=== PATIENT | female | born 1965 | race Two or more races ===

== ENCOUNTER 2023-03-13 11:23 | Emergency (ER) | payer OTHER, SELFPAY ==
[2023-03-13] VITALS (16 sets, daily range): BP systolic 152; BP diastolic 99; PULSE 78–117; RESP 12–26; O2SAT 95–98; BMI 52.9
--- NOTE | 2023-03-13 11:35 | ED.SOB1 ---
HPI - SOB/Dyspnea General Chief Complaint: Shortness of Breath/Dyspnea Stated Complaint: COUGH Time Seen by Provider: 03/13/23 11:35 Source: patient Mode of arrival: walk-in History of Present Illness HPI Narrative: Patient presents emergency department complaining of cough. Patient states she's had some congestion and sore throat and runny nose. She states her was sick with same pain that he had an antibiotic. She has been sick for 6 days. She complains of the congestion expanding to her chest.she denies any chest pain She denies any wheezing. She states it is hard to catch her breath. She has no previous history of lung disease. She denies any chills states she had a fever up to yesterday. Fever was on and off but she is not sure what her MAXIMUM TEMPERATURE was. She denies any nausea, vomiting, diarrhea, constipation, or abdominal pain. Denies any flank pain, hematuria, dysuria. Patient is vaccinated, and boosted against covid 19.Patient's spouse was not tested. Related Data Home Medications Medication Instructions Recorded Confirmed cholecalciferol (vitamin D3) 50 2,000 unit PO BID 03/13/23 03/13/23 mcg (2,000 unit) tablet (Vitamin D3) oxycodone 5 mg tablet 5 mg PO Q6H PRN pain 03/13/23 03/13/23 Previous Rx's Medication Instructions Recorded albuterol sulfate 90 mcg/actuation 2 inh inhalation Q4H PRN shortness 03/13/23 aerosol inhaler of breath or wheezing #8.5 grams methylprednisolone 4 mg tablets in 4 mg PO DAILY #21 ea 03/13/23 a dose pack (Medrol (Familia)) Allergies Allergy/AdvReac Type Severity Reaction Status Date / Time No Known Drug Allergies Allergy Verified 03/13/23 11:31 Review of Systems ROS Status of ROS 10 or more systems reviewed and unremarkable except as noted in history and below [facility] Medical History (Updated 03/13/23 @ 13:41 by Rebeca Mejia MD) Exam Narrative Exam Narrative: Nurses notes and vital signs reviewed and patient is not hypoxic. General: Nontoxic, Well-appearing and in no apparent distress. Skin: Warm, dry, no pallor noted. No Rash Head: Normocephalic, atraumatic. Neck: Supple, non-tender. Eye: Pupils are equal, round and EOMI. No scleral icterus. Ears, Nose, Mouth, and Throat: TM clear, no posterior oropharynx erythema or nasal mucosal hypertrophy, uvula is mid-line Oral mucosa is moist Cardiovascular: Regular Rate and Rhythm without murmur, gallop or rub. Respiratory: No accessory muscle use or respiratory distress. Lungs Scattered rhonchi Chest Wall: no tenderness Back: No midline thoracic or lumbar vertebral tenderness. No CVA tenderness Musculoskeletal: normal ROM, no calf or popliteal tenderness, no lower extremity edema/swelling GI: Obese,Abdomen is soft, non-distended. Normal bowel sounds. No masses appreciated. No tenderness to palpation. No rebound, guarding, or rigidity noted. Neurological: A&O x4. No cranial nerve dysfunction observed. No truncal ataxia. Moves all extremities. Sensation intact. Psychiatric: Cooperative and interactive. Normal mood and affect. Constitutional Vital Signs - 24 hr 03/13/23 11:31 Pulse Rate [Monitor] 99 H Respiratory Rate 20 Blood Pressure [Right Arm] 152/99 H Pulse Oximetry 96 Oxygen Delivery Method Room Air Course Vital Signs Vital signs: Vital Signs Pulse Rate 99 H 03/13/23 11:31 Respiratory Rate 20 03/13/23 11:31 Blood Pressure 152/99 H 03/13/23 11:31 Pulse Oximetry 96 03/13/23 11:31 Oxygen Delivery Method Room Air 03/13/23 11:31 Pulse Rate 78 03/13/23 13:50 Respiratory Rate 19 03/13/23 13:50 Blood Pressure 152/99 H 03/13/23 11:31 Pulse Oximetry 95 03/13/23 13:50 Oxygen Delivery Method Room Air 03/13/23 11:31 MDM - SOB/Dyspnea MDM Narrative Medical decision making narrative: Labs were done. An RESULTS were discussed with patient. Patient is nontoxic, non-hypoxic, she is not a candidate for Paxlovid. She will be started on steroids and an inhaler. She is given a prescription for the same. Advised covid precautions. At this time the patient is without objective evidence of an acute process requiring hospitalization or inpatient management. The patient has remained hemodynamically stable. No additional indication for emergent studies at this time. I answered all questions. Discussed discharge instructions including standard anticipatory guidance and what should prompt a return to the emergency department, including if they get worse are not getting better or develops any new or concerning symptoms. I've given them specific time frame in which to follow-up, and who to follow-up with. The patient demonstrates understanding. Patient is nontoxic and stable for discharge with outpatient follow-up. This note was created with the assistance of a speech recognition program. Although the intention is to generate documents that actually reflects the content of the visit, no guarantees can be provided that every mistake has been identified and corrected by editing. Differential Diagnosis Differential diagnosis: Likely acute exacerbation of chronic obstructive airways disease, congestive heart failure, community acquired pneumonia and asthma with exacerbation Lab Data Attestation: I reviewed the patient's lab results. Labs: Lab Results 03/13/23 03/13/23 Range/Units 12:15 12:35 WBC 7.4 (4.0-11.0) 10^3/uL RBC 4.48 (4.20-5.40) 10^6/uL Hgb 12.3 (12.0-16.0) g/dL Hct 38.8 (36.0-48.0) % MCV 86.6 (81.0-99.0) fL MCH 27.5 (26.7-34.0) pg MCHC 31.7 (29.9-35.2) g/dL RDW 16.0 H (11.0-15.0) % Plt Count 285 (150-450) 10^3/uL MPV 9.8 (9.5-13.5) fL Neut % (Auto) 59.5 (43.0-75.0) % Lymph % (Auto) 29.7 (20.5-60.0) % [place] % (Auto) 7.2 (1.7-12.0) % Eos % (Auto) 2.8 (0.9-7.0) % Baso % (Auto) 0.5 (0.2-2.0) % Neut # (Auto) 4.4 (1.4-6.5) 10^3/uL Lymph # (Auto) 2.2 (1.2-3.8) 10^3/uL [place] # (Auto) 0.5 (0.3-0.8) 10^3/uL Eos # (Auto) 0.2 (0.0-0.7) 10^3/uL Baso # (Auto) 0.0 (0.0-0.1) 10^3/uL Abs Immat Gran (auto) 0.02 (0.00-0.03) 10^3/uL Imm/Tot Granulo (auto) 0.3 (0.0-0.5) % Sodium 141 (136-145) mmol/L Potassium 3.4 L (3.5-5.1) mmol/L Chloride 105 (98-107) mmol/L Carbon Dioxide 29.0 (21.0-32.0) mmol/L Anion Gap 10.4 BUN 10.0 (7.0-18.0) mg/dL Creatinine 0.60 (0.55-1.02) mg/dL Est GFR ( Amer) >60 (>=60) Est GFR (Non-Af Amer) >60 (>=60) BUN/Creatinine Ratio 16.7 Glucose 144 H (74-106) mg/dL Lactate 2.1 H (0.4-2.0) mmol/L Calcium 9.0 (8.5-10.1) mg/dL SARS-CoV-2 (PCR) Positive A (NEGATIVE) Streptococcus Screen Negative ECG Data Attestation: I personally reviewed and interpreted this ECG as follows: Discharge Plan Discharge Chief Complaint: Shortness of Breath/Dyspnea Clinical Impression: Upper respiratory tract infection due to COVID-19 virus Patient Disposition: Home, Self-Care Time of Disposition Decision: 13:41 Condition: Good Mode of Transportation: Private Vehicle Prescriptions / Home Meds: New albuterol sulfate 90 mcg/actuation HFA aerosol inhaler 2 inh inhalation Q4H PRN (Reason: shortness of breath or wheezing) Qty: 8.5 0RF methylprednisolone [Medrol (Familia)] 4 mg tablets,dose pack 4 mg PO DAILY Qty: 21 0RF No Action cholecalciferol (vitamin D3) [Vitamin D3] 50 mcg (2,000 unit) tablet 2,000 unit PO BID oxycodone 5 mg tablet 5 mg PO Q6H PRN (Reason: pain) Instructions: COVID-19 (Coronavirus Disease 2019) (ED), How to Recover from COVID-19 at Home (ED) Additional Instructions: To car in w/c with instructions, mask, note for work. 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 Stand Alone Forms: Portal Instructions Referrals: Cruz Crain MD [Primary Care Provider] - 1 week Follow Up Appointments: 1 week Discharge Date/Time: 03/13/23 14:22
--- NOTE | 2023-03-13 11:54 | ECG_ITS ---
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
--- NOTE | 2023-03-13 12:12 | XR_ITS ---
The [address] [address] Patient Name: ALLYSSA ELENA MRN: [id number] date: 1965 Sex: F Assigned Patient Location: ER Current Patient Location: ER Accession/Order Number: [id number] Exam Date: 03/13/2023 12:23 Report Date: 03/13/2023 12:50 At the request of: STEVE ARELLANO Procedure: XR chest 2V EXAM: XR chest 2V HISTORY: cough COMPARISON: None. TECHNIQUE: Chest X-ray AP, 1 view FINDINGS: Support devices: None. Lungs/pleura: No consolidation, effusion, or pneumothorax. Heart and mediastinum: Normal contours. Bones: No acute abnormality identified. Impression: No radiographic evidence of acute cardiopulmonary process. Electronically authenticated by: LYSSA THAKKAR Date: 03/13/2023 12:50
[2023-03-13 12:40] LABS: Internal Control Within Normal Limits; Strep A Antigen Screen Negative
[2023-03-13 12:42] LABS: SARS-CoV-2 Ag Positive (NEGATIVE)
[2023-03-13 12:52] LABS: Basophils Percent Auto 0.5 % (0.2-2.0); Eosinophils Absolute Auto 0.2 10^3/uL (0.0-0.7); Eosinophils Percent Auto 2.8 % (0.9-7.0); Hematocrit 38.8 % (36.0-48.0); Hemoglobin 12.3 g/dL (12.0-16.0); Immature Granulocytes Abs Auto 0.02 10^3/uL (0.00-0.03); Immature Granulocytes Pct Auto 0.3 % (0.0-0.5); Lymphocytes Absolute Auto 2.2 10^3/uL (1.2-3.8); Lymphocytes Percent Auto 29.7 % (20.5-60.0); Mean Corpuscular HGB Conc 31.7 g/dL (29.9-35.2); Mean Corpuscular Hemoglobin 27.5 pg (26.7-34.0); Mean Corpuscular Volume 86.6 fL (81.0-99.0); Mean Platelet Volume 9.8 fL (9.5-13.5); Monocytes Absolute Auto 0.5 10^3/uL (0.3-0.8); Monocytes Percent Auto 7.2 % (1.7-12.0); Neutrophils Absolute Auto 4.4 10^3/uL (1.4-6.5); Neutrophils Percent Auto 59.5 % (43.0-75.0); Platelet Count 285 10^3/uL (150-450); Red Blood Count 4.48 10^6/uL (4.20-5.40); White Blood Count 7.4 10^3/uL (4.0-11.0)
[2023-03-13 12:58] LABS: Anion Gap 10.4; BUN Creatinine Ratio 16.7; Chloride 105 mmol/L (98-107); Estimated GFR (African America >60 (>=60); Estimated GFR (Non-African Ame >60 (>=60); Glucose 144 mg/dL (74-106); Potassium 3.4 mmol/L (3.5-5.1); Sodium 141 mmol/L (136-145)
[2023-03-13 13:06] LABS: Lactate/Lactic Acid 2.1 mmol/L (0.4-2.0)
[2023-03-13] MEDS: KETOROLAC TROMETHAMINE 30 MG/ML VIAL 15 MG IVP (13:12)
[2023-03-13] MEDS: 0.9 % SODIUM CHLORIDE 1,000 ML 999 ML IV (13:13)
--- NOTE | 2023-03-13 13:55 | PC.NURSE ---
verbalized feeling better
== END 2023-03-13 14:22 | disposition home or self-care (01) ==
PROVIDERS: Emergency Provider Emergency Medicine; PCP Family Medicine
DX: U07.1 COVID-19 (principal); J06.9 Acute upper respiratory infection, unspecified; E66.9 Obesity, unspecified
CPT/HCPCS: 36415; 71046; 80048; 83605; 85025; 87070; 87635; 87811; 87880; 93005; 96374; 99285; U0003

== ENCOUNTER 2023-06-08 12:46 | Outpatient (OUT) | payer OTHER, SELFPAY ==
--- NOTE | 2023-06-08 13:41 | CA_ITS ---
Patient: ALLYSSA ELENA Exam Date: 06/08/2023 : 1965 Gender:F Ordering : DR Cruz Crain . Admission #: [id number] Family : Order #: [id number] CLICK HERE TO VIEW EXAM ECHOCARDIOGRAM REPORT PROCEDURE: CA ECHO DOPPLER COMPLETE INDICATIONS: Shortness of breath, edema of both legs, recent Covid (03/2023) COMPARISON: None. DESCRIPTION: COMPLETE ECHOCARDIOGRAM Real-time transthoracic echocardiography with 2D, M-mode, spectral and color flow Doppler performed. QUALITY: Technical quality was fair. LEFT VENTRICLE: Normal chamber size. Mild concentric left ventricular hypertrophy. LV EF: Normal left ventricular ejection fraction, (55%). DIASTOLIC: Normal diastolic function. ATRIAL SEPTUM: LEFT ATRIUM: Normal chamber size. RIGHT ATRIUM: Normal chamber size. RIGHT VENTRICLE: Normal chamber size. Normal right ventricular systolic function. TRICUSPID VALVE: Normal mobility and thickness. No stenosis and no regurgitation. Unable to assess right sided pressures due to lack of measurable tricuspid regurgitation. MITRAL VALVE: Normal mobility and thickness. No evidence of mitral valve stenosis. There is no mitral annular calcification. Trivial mitral regurgitation. AORTIC VALVE: Normal trileaflet appearance. No visible sclerosis. Normal leaflet mobility. No evidence of aortic valve stenosis. No aortic regurgitation. AORTIC ROOT: Normal diameter and appearance. PULMONIC VALVE: Normal thickness and mobility. No stenosis. Trivial regurgitation. PERICARDIUM: No evidence of pericardial effusion. IVC: Not well visualized. PLEURA: CONCLUSION: 1. Mild concentric left ventricular hypertrophy with normal systolic function. LV EF is 55%. 2. Normal right ventricular size and systolic function. 3. No significant valvular dysfunction. 4. Unable to assess right sided pressures due to lack of measurable tricuspid regurgitation. Adult Echocardiography Procedure Report Left Ventricle LVEDD (3.7 - 5.6 cm): 4.34 cm LVESD (2.2 - 4.0 cm): 3.27 cm LVIVS thickness (0.6 - 1.2 cm): 1.31 cm LVPW thickness (0.5 - 1.0 cm): 1.30 cm e': 0.12 m/s E - e': 5.18 LVOT Max Gradient: 3.48 mm[Hg] LVOT Area (cm2): 0.93 m/s Peak Velocity (LVOT): 0.93 m/s LVOT Diameter 2.30 cm Left Atrium LA Volume Index (2D A2C): 27.52 ml/m2 Left Atrium Systolic Dimension: 3.75 cm Mitral Valve MV E to A Ratio: 0.86 Mitral Valve A-Wave Peak Velocity: 0.71 m/s Mitral Valve E-Wave Peak Velocity: 0.61 m/s Right Ventricle Aorta AO Root Diam: 3.48 cm Aortic Valve AoV Area (Peak Malik): 3.31 cm2, 3.31 cm2 Peak Velocity(Antegrade Flow): 1.16 m/s Peak Gradient(Antegrade Flow): 5.42 mm[Hg] Tricuspid Valve Peak Velocity (Regurgitant Flow): 2.24 m/s Pulmonic Valve Mean Gradient: 2.94 mm[Hg], 3.14 mm[Hg], 2.55 mm[Hg] Mean Velocity: 0.80 m/s, 0.82 m/s, 0.74 m/s Peak Velocity: 1.16 m/s Peak Gradient: 5.09 mm[Hg], 5.85 mm[Hg], 5.09 mm[Hg] Right Atrium Right Atrium Systolic Pressure: 40.76 ml, 40.76 ml Dictated by: Roberto Kwok M.D. on 06/09/2023 at 09:20 Approved by: Roberto Kwok M.D. on 06/09/2023 at 09:28
== END 2023-06-08 12:47 | disposition home or self-care (01) ==
LOC: CARD 12:47
PROVIDERS: PCP Family Medicine; Visit Provider Family Medicine
DX: R06.02 Shortness of breath (principal); U07.1 COVID-19
CPT/HCPCS: 93306

== ENCOUNTER 2024-01-20 08:00 | Outpatient (OUT) | payer OTHER, SELFPAY ==
--- NOTE | 2024-01-20 08:01 | VEIN_ITS ---
Patient Name: ALLYSSA ELENA MR#: [id number] : 1965 Exam Date: 01/20/2024 Ordering Doctor: DR LAVELL RIVER . RADIOLOGY REPORT PROCEDURE: VC EXT VENOUS REFLUX CASSIA LMTD COMPARISON: None. INDICATIONS: R60.0 Localized edema TECHNIQUE: Duplex imaging of the lower extremity to assess the deep and superficial venous system for the presence of deep or superficial venous incompetence and to document the location and severity of disease. The study includes evaluation of the great saphenous vein (GSV), anterior accessory saphenous vein (AASV) and small saphenous vein (SSV). Patient scanned in reverse Trendelenburg and standing. FINDINGS: RIGHT LOWER EXTREMITY: Saphenofemoral Junction Reflux: Yes mm sec GSV: Diam (mm) Reflux/ Time (sec) Proximal Thigh N/A Mid Thigh N/A Distal Thigh N/A Prox Calf N/A Mid Calf N/A Saphenopopliteal Junction Reflux: 5.6mm Yes 3.9 SSV: Proximal Calf 5.8 Yes 3.8 Mid Calf 4.4 Yes 2.3 AASV: Not present Proximal Thigh Mid Thigh Distal Thigh Thrombi: No acute or chronic thrombus visualized Compressibility: Normal Flow: Mild reflux visualized in Pop V. Preforator: Mid/med calf 3.8mm with 1.0s reflux. Mid/med thigh 2.2mm with 0s reflux. Tech Note: Previous stripping of GSV. Incompetent SSV. Patent varicose vein ant/med 2.3mm with 0.3s reflux. LEFT LOWER EXTREMITY: Saphenofemoral Junction Reflux: Yes 11.4 mm 4.6 sec GSV: Diam (mm) Reflux/Time (sec) Proximal Thigh N/A Mid Thigh N/A Distal Thigh N/A Prox Calf N/A Mid Calf Saphenopopliteal Junction Relux: 2.9 mm No SSV: Proximal Calf 2.2 No Mid Calf 2.5 No AASV: Not present Proximal Thigh Mid Thigh Distal Thigh Thrombi: No acute or chronic thrombus visualized Compressibility: Normal Flow: Normal Twisting Machine Operator: Dist/med calf 4.3mm with 0s reflux. Mid/med calf 4.9mm with 1.6s reflux. Tech Note: Previous stripping of GSV. Extensive varicose vein in length and diameter extending from SFJ to proximal calf. The varicosity measures largest at dist/med thigh and is 6.3 mm with 2.1s reflux. Patent varicose vein at medial knee 6.0mm with 2.1s reflux. Patent varicose vein prox/med calf 3.7mm with 3.5s reflux. CONCLUSION: 1. Abnormally dilated and incompetent right small saphenous vein. 2. Abnormally dilated and incompetent distal lower extremity chief crew scheduler veins bilaterally. 3. 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 Dictated by: Lio Levin M.D. on 01/20/2024 at 13:27 Approved by: Lio Levin M.D. on 01/20/2024 at 13:30
--- NOTE | 2024-01-20 08:01 | VEIN_ITS ---
Patient Name: ALLYSSA ELENA MR#: [id number] : 1965 Exam Date: 01/20/2024 Ordering Doctor: DR LAVELL RIVER . RADIOLOGY REPORT PROCEDURE: VC FACILITY EST COMPREHENSIVE VEIN CENTER - OFFICE VISIT INITIAL COMPARISON: None. PROGRESS NOTES: [age] year old female who presents with a 30 year history of dilated bulging veins, discolored veins, leg pain, swelling, muscle cramping. The patient's left leg symptoms are worse than the right. There has been a progression of symptoms over time. This increases with prolonged leg dependency. The patient describes an improvement with rest, elevation, exercise, support stockings, and medication. The patient denies any signs and symptoms to suggest arterial ischemia. The patient describes a family history : Noncontributory. The patient has drinking and smoking history of : None. Patient has a past medical history significant for obesity, osteoarthritis, edema. The patient denies a history of deep venous thrombus or pulmonary embolus. See separate history and physical for medication list. Several prior treatments for varicose or spider veins. Current use of compression stockings. After review of nurse notes, history and physical exam I discussed at length the pathophysiology of venous hypertension and possible treatments, therapies and strategies available. We discussed at length the importance of elevating the lower extremities above the level of the heart, increased physical activity and compression stocking use. Ultrasound venous reflux study performed today was discussed at length with the patient. The report demonstrates abnormally dilated and incompetent right small saphenous vein; bilateral dilated incompetent street railway line installer veins, and multiple incompetent branch saphenous varicosities bilaterally.. PHYSICAL EXAM: The right leg demonstrates multiple varicosities, numerous spider veins, no ulceration, mild edema, mild skin discoloration. The left leg demonstrates multiple varicosities, numerous spider veins, no ulceration, mild edema, mild skin discoloration. Both thighs, legs and feet were symmetrically warm to the touch. Good posterior tibial and dorsalis pedis pulses were present bilaterally. VEIN/VC Facility EST Comprehensive IMPRESSION: 1. Bilateral vein stripping of the right GSV and left GSV. 2. Bilateral lower extremity venous insufficiency 3. Bilateral lower extremity varicose veins 4. Mild bilateral lower extremity subcutaneous edema 5. No flow significant arterial disease 6. CEAP: C3, AP, AP, MA PLAN: 1. Continued use of compression stockings 2. Elevated legs and increased physical activity symptomatic relief 3. Endovenous laser ablation of right small saphenous vein. 4. Microfoam chemical ablation of numerous bilateral branch saphenous varicosities is needed (if insurance will approve). Nurse notes, history and physical were reviewed and confirmed, see attached forms. The nurse was present throughout the physical exam and consultation Dictated by: Lio Levin M.D. on 01/20/2024 at 13:30 Approved by: Lio Levin M.D. on 01/20/2024 at 13:36
== END 2024-01-20 08:01 | disposition home or self-care (01) ==
LOC: VC 08:00
PROVIDERS: PCP Family Medicine; Visit Provider Family Medicine
DX: R60.0 Localized edema (principal)
CPT/HCPCS: 93970; G0463

== ENCOUNTER 2024-01-24 12:30 | Outpatient (OUT) | payer OTHER, SELFPAY | END 2024-01-24 12:31 | disposition home or self-care (01) | LOC: PST 14:52 | PROVIDERS: PCP Family Medicine; Visit Provider Surgery | DX: Z01.818 Encounter for other preprocedural examination (principal) ==

== ENCOUNTER 2024-01-31 07:45 | Day surgery (SDC) | payer OTHER, SELFPAY ==
[2024-01-31 08:00] VITALS: BP 149/45; PULSE 103; TEMP 36.8; O2SAT 94; BMI 55.9
[2024-01-31] MEDS: LACTATED RINGER'S SOLUTION 1,000 ML 50 ML IV (08:35)
--- NOTE | 2024-01-31 08:54 | PM.GSPRC ---
Date of procedure: 01/31/24 Indications for Procedure: screening colonoscopy Pre-op diagnosis: screening colonoscopy Procedure: Previous colonoscopy: never procedure: screening colonoscopy The patient was given IV conscious sedation.? The patient's SPO2 remained above 90% throughout the procedure. The colonoscope was inserted per rectum and advanced under direct vision to the cecum without difficulty.? The prep was fair.? Findings: Terminal ileum os: normal Cecum/Ascending colon: normal Transverse colon: normal Descending/Sigmoid colon: normal Rectum/Anus: examined in normal and retroflexed positions and was normal Withdrawal Time was (minutes): 8 The colon was decompressed and the scope was removed.? The patient tolerated the procedure well. Recommendations/Plan: 1.? Lifestyle and dietary modifications as discussed 2.? F/U 10 years for repeat c-scope 3.? Discussed with the family Findings: normal colonoscopy Surgeon: Femi Love Procedure Summary: screening colonoscopy Estimated blood loss (mL): 0 Complications: No Pathology: none sent Condition: stable Disposition: PACU
[2024-01-31 09:21] VITALS: BP 121/81; PULSE 96; TEMP 36.5; O2SAT 99
[2024-01-31 09:36] VITALS: BP 156/77; PULSE 89; O2SAT 97
[2024-01-31 09:51] VITALS: BP 152/97; PULSE 96; O2SAT 98
== END 2024-01-31 09:56 | disposition home or self-care (01) ==
PROVIDERS: PCP Family Medicine; Visit Provider Surgery
PROC: (CPT 00812; principal; 2024-01-31 09:10)
DX: Z12.11 Encounter for screening for malignant neoplasm of colon (principal); E66.01 Morbid (severe) obesity due to excess calories; Z68.43 Body mass index [BMI] 50.0-59.9, adult; Z96.653 Presence of artificial knee joint, bilateral
CPT/HCPCS: 00812; 45378; J2704

== ENCOUNTER 2024-03-02 07:49 | Outpatient (OUT) | payer OTHER, SELFPAY ==
--- OUTSIDE RECORDS SUMMARY | 2024-03-02 07:51 | XMS_ITS | CCD ---
Author Organization [facility] Care Team Providers Care Office Analyst Name Role Phone Solomon Walters Unavailable Unavailable PocSolomon carroll Unavailable Unavailable PocSolomon carroll Unavailable Unavailable KAMALA [id number] UNKNOWN Unavailable Unavailable SALMA, CELENA R Admitting Unavailable SALMA, CELENA R Attending Unavailable SELF, REFERRED Primary Care Unavailable SELF, REFERRED Referring Unavailable NADERER, DR ALVELL Zamora Admitting Unavailable NADERER, DR LAVELL Zamora Attending Unavailable NADERER, DR LAVELL Zamora Primary Care Unavailable NADERER, DR LAVELL Zamora Consulting Unavailable MISC, DR BARNES Admitting Unavailable MISC, DR BARNES Attending Unavailable NADERER, DR LAVELL Zamora Primary Care Unavailable MISC, DR BARNES Consulting Unavailable NADERER, DR LAVELL Zamora Admitting Unavailable NADERER, DR LAVELL Zamora Attending Unavailable NADERER, DR LAVELL Zamora Primary Care Unavailable NADERER, DR LAVELL Zamora Consulting Unavailable SALMA, CELENA Referring Unavailable SALMA, CELENA Referring Unavailable SALMA, CELENA Attending Unavailable SALMA, CELENA Attending Unavailable SELF, REFERRED Referring Unavailable SALMA, CELENA Attending Unavailable NADERER, LAVELL Attending Unavailable RACHEL, ABHISHEK Attending Unavailable NADERER, LAVELL Referring Unavailable NADERER, LAVELL Attending Unavailable NADERER, LAVELL Referring Unavailable NADERER, LAVELL Attending Unavailable Allergies Allergy Classification Reported Allergen(s) Allergy Type Date of Onset Reaction(s) Facility (1 source) chlorhexidine; Translations: [chlorhexidine topical] Drug Allergy [facility] Repository (2 sources) nickel; Translations: [Nickel] Drug Allergy 2 [facility]OF [facility] Repository (1 source) No Known Medication Allergies; Translations: [No Known Medication Allergies] Propensity to adverse reactions (disorder) [facility] Repository (1 source) PROPOXYPHENE N-ACETAMINOPHEN; Translations: [PROPOXYPHENE N-ACETAMINOPHEN] Propensity to adverse reactions to drug (disorder) 7 [facility] Repository Problems Problem Classification Problem Date Documented Da te Episodic/Chronic Nutritional deficiencies (1 source) Vitamin D deficiency, unspecified; Translations: [VITAMIN D DEFICIENCY UNSPECIFIED] Onset: 03-10-2022 Chronic Other connective tissue disease (4 sources) Presence of unspecified artificial knee joint; Translations: [PRESENCE UNS ARTIFICIAL KNEE JOINT] Onset: 03-12-2022 Chronic Other connective tissue disease (2 sources) Presence of right artificial knee joint; Translations: [Presence of right artificial knee joint] Onset: 12-09-2022 Chronic Other lower respiratory disease (4 sources) Shortness of breath; Translations: [SHORTNESS OF BREATH] Onset: 07-20-2022 Episodic Results Test Name Value Interpretation Reference Range Facility BI MAMMOGRAM SCREENING TOMOS YNTHESIS BILATERALon 01-23-2024 BI MAMMOGRAM SCREENING TOMOSYNTHESIS BILATERAL This is a summary report. The complete report is available in the patient's medical record. If you cannot access the medical record, please contact the sending organization for a detailed fax or copy. EXAMINATION: BI MAMMOGRAM SCREENING TOMOSYNTHESIS BILATERAL CLINICAL HISTORY:Screening COMPARISON: May 18, 2018. RESULT: Digital mammography and 3D tomosynthesis of bilateral breasts was performed. Density: Almost entirely fatty [1] Overall appearance is stable. Typically benign calcifications. There is no suspicious mass, asymmetry, architectural distortion, or calcification IMPRESSION: BIRADS 2 - Benign Follow-up: Routine Screening Mamm Board Certified Radiologists. Accredited by the ACR and FDA. MAMMOGRAPHY IS VERY IMPORTANT TO YOUR HEALTH. THE [place] [employer] GUIDELINES RECOMMEND THAT WOMEN 40 YEARS OF AGE AND OLDER SHOULD HAVE A MAMMOGRAM EVERY YEAR. A REMINDER LETTER WILL BE SENT AT THE APPROPRIATE TIME. THIS FACILITY UTILIZES A REMINDER SYSTEM TO ENSURE ALL PATIENTS RECEIVE REMINDER NOTIFICATIONS AT THE APPROPRIATE TIME BASED ON THE RECOMMENDATIONS OF THIS EXAM. THIS INCLUDES REMINDERS FOR ROUTINE SCREENING MAMMOGRAMS, DIAGNOSTIC MAMMOGRAMS IN WHICH THE PATIENT IS ASKED TO RETURN FOR ADDITIONAL VIEWS, OR OTHER BREAST IMAGING INTERVENTIONS WHEN APPROPRIATE. THE PATIENT WILL BE PLACED IN THE APPROPRIATE REMINDER SYSTEM INCLUDING A REMINDER AT THE APPROPRIATE TIME FOR ANY PENDING ADDITIONAL VIEWS. TRANSCRIBED BY: ELECTRONICALLY SIGNED BY: Jean Blanton MD Normal Not Available Orders Onlyon 06-17-2023 Orders Only [id number] Allyssa Valenzuela 1965 F Date Provider Department Center 06/17/2023 [facility] Family History Family history unknown: Yes [facility] Follow-Upon 06-16-2023 Follow-Up [id number] Allyssa Valenzuela M 1965 F Date Provider Department Center 06/16/2023 CELENA ORTEGA [facility] Family History Family history unknown: Yes Level of Service:13667 [place] OFFICE/OUTPATIENT ESTABLISHED LOW MDM 20-29 MIN Reason for Visit and Comments: Follow-up [623505] Pain [136] [facility] Orders Onlyon 01-05-2023 Orders Only [id number] Allyssa Valenzuela 1965 F Date Provider Department Center 01/05/2023 AMANDA TURK [facility] Family History Family history unknown: Yes [facility] 36on 01-04-2023 36 PATIENT CALLED STATI NG SHE HAS TO USE A CANE WHILE AT WORK AND NEEDS WORK NOTE STATING OKAY TO USE CANE AT WORK //FAX TO [facility] ATTN:JONH HOFFMAN FX [phone]. PLEASE ADVISE //THANKS//[facility] Follow-Upon 10-28-2022 Follow-Up [id number] Allyssa Valenzuela 1965 F Provider Department Center 10/28/2022 CELENA ORTEGA [facility] Family History Family history unknown: Yes Level of Service:12971 [place] POSTOP FOLLOW UP VISIT RELATED TO ORIGINAL PX Reason for Visit and Comments: Pain [136] Normal [facility] HEMOGLOBINon 07-20-2022 Hemoglobin (Bld) [Mass/Vol] 13.5 g/dL Normal 12.0-16.0 [facility] Comment on above: Performed By: #### H GB #### [facility] [address] [place] [address] Dr. Mariano Mistry NM 3 PHASE BONE SCANon 05-12 NM 3 PHASE BONE SCAN [facility] Department of Radiology [address] [place] [address] ===== Patient Name: ALLYSSA VALENZUELA : 1965 Sex: F Age: Race: Other Pt. Location: 84 Patient Status: D Ordered Date: 04/19/2022 7:15:00 AM Completed Date: 05/12/2022 02:58 PM Requesting Provider: CELENA MARSH Attending Provider: CELENA MARSH Report Copy To: Signs & Symptoms: Z96.659 Presence of unspecified artificial knee joint I10 History: Maria Guadalupe, PHONE:[phone],*[facility] F/U APPT. Comments: Evaluate Exam: NM 3 PHASE BONE SCAN ===== NM 3 PHASE BONE SCAN 05/12/2022 2:58 PM CLINICAL INDICATIONS: Z96.659 Presence of unspecified artificial knee joint I10 TECHNOLOGIST COMMENTS: Bilateral knee replacement 10 years ago, revision on right knee replacement 5 years ago. Right knee causing pain. Patient injected with 26.14 mCi of Tc99m MDP for imaging. QUESTION FOR RADIOLOGIST: Evaluate PROTOCOL: Triple phase bone scan of the knees obtained following intravenous administration of 26.14 mCi technetium 99m M DTPA COMPARISON: No prior FINDINGS: Bilateral total knee arthroplasty. Angiographic phase: No definite abnormal radiopharmaceutical distribution on the angiographic phase of the examination Blood pool phase: Abnormal blood pool activity is identified in the medial tibial plateau on the left side note is also made of increased flow in multiple venous collaterals in both lower extremities especially on the left On delayed images there is some increased radiopharmaceutical accumulation in the medial tibial plateau on the left side corresponding to the abnormal blood pool activity. This area corresponds to some relative lucency on the plain radiographs. Cannot exclude an area of some loosening. IMPRESSION: Abnormal blood pool and delayed images medial left tibial plateau corresponds to an abnormal area of increased delayed uptake but no definite angiographic uptake. On plain radiographs there is some relative lucency in this area and loosening cannot be excluded Electronically signed: Kelsey Lockett. Transcribed by: [email or web address], User Resident: Electronically Signed by: KELSEY LOCKETT @ 05/13/2022 03:56 PM Normal [facility] Comment on above: Order Comment: Evalu ate US Venous, Unilat, Lower Ext Righton 04-29-2022 US Venous, Unilat, Lower Ext Right FINDINGS: The deep venous system of the right lower extremity exhibits full compressibility and normal flow augmentation. These specifically include the common femoral, superficial femoral, and popliteal veins. No evidence of deep venous thrombosis is present. (Greater saphenous vein is surgically absent.) No cystic or soft tissue mass in the popliteal fossa. IMPRESSION: Normal venous sonogram. No deep venous thrombosis. Report reported and signed by Jean Blanton on 04/29/2022 0947 Normal [facility] [employer]ot[employer] Tender Helper CRPon 03-12-2022 CRP 1.9 mg/dL Critically high <=1.[address] [facility] Comment on above: Performed By: #### C RP #### [facility] [address] [place] [address] Dr. Mariano Mistry SED RATE WESTERGRENon 2021 SED RATE 32 mm/hr Critically high <=[address] [facility] Comment on above: Performed By: #### S EDR #### [facility] [address] [address] [address] Mariano Mistry KNEE LEFT 4VWSon 03-11-2022 KNEE LEFT 4VWS [facility] Department of Radiology [address] [place] [address] ===== Patient Name: ALLYSSA VALENZUELA : 1965 Sex: F Age: Race: Other Pt. Location: 84 Patient Status: D Ordered Date: 03/11/2022 10:10:00 AM Completed Date: 03/11/2022 10:13 AM Requesting Provider: JOAQUINA MASON Attending Provider: JOAQUINA MASON Report Copy To: SELF, REFERRED Signs & Symptoms: M25.561 Pain in right knee I10 History: [place] Comments: Exam: KNEE LEFT 4VWS ===== KNEE LEFT 4VWS 03/11/2022 10:20 AM CLINICAL INDICATIONS: M25.561 Pain in right knee I10 TECHNOLOGIST COMMENTS: Pt stated having bilateral knees pain, hx of fall x 1 month ago, bilateral knees surgery 2010. QUESTION FOR THE RADIOLOGIST: PROTOCOL: AP,Lateral,Tunnel and Tangential views were obtained. COMPARISON: None FINDINGS: Postoperative changes of left total knee arthroplasty. Slightly increased lucency at the medial and lateral femoral condyles as well as subjacent to the tibial component at the lateral plateau. Anatomic alignment. Quadriceps tendon enthesophyte. IMPRESSION: * Left knee arthroplasty with findings indeterminate for early loosening as above. * No acute fracture after clinically-described subacute fall. Electronically signed: TIFFANIE ORTEGA. Transcribed by: [email or web address], User Resident: Electronically Signed by: TIFFANIE ORTEGA @ 03/14/2022 11:12 AM Normal [facility] KNEE RIGHT 4 [facility] 2 KNEE RIGHT 4 [facility] Department of Radiology [address] [place] [id number] ===== Patient Name: ALLYSSA VALENZUELA : 1965 Sex: F Age: Race: Other Pt. Location: 84 Patient Status: D Ordered Date: 03/11/2022 10:10:00 AM Completed Date: 03/11/2022 10:13 AM Requesting Provider: JOAQUINA MASON Attending Provider: JOAQUINA MASON Report Copy To: SELF, REFERRED Signs & Symptoms: M25.561 Pain in right knee I10 History: [place] Comments: Exam: KNEE RIGHT 4 VWS ===== KNEE RIGHT 4 VWS 03/11/2022 10:20 AM CLINICAL INDICATIONS: M25.561 Pain in right knee I10 TECHNOLOGIST COMMENTS: Pt stated having bilateral knees pain, hx of fall x 1 month ago, bilateral knees surgery 2010. PROTOCOL: AP,Lateral,Tunnel and Tangential views were obtained. COMPARISON: 03/11/2022 right knee radiographs. FINDINGS: Right total knee arthroplasty without fracture of surgical hardware. Superior position of patellar component likely represents patella michelle but could represent a superior dislocation. IMPRESSION: * High riding patella likely representing patella michelle. * No acute complications of surgical hardware. Approved by:Hay Stanley03/12/2022 8:45 AM. I, Guerita Patel,have reviewed the image(s) and agree with the findings in this report. Electronically signed: Guerita Patel. Transcribed by: [email or web address], User Resident: HAY LIZAMA Electronically Signed by: GUERITA PATEL @ 03/12/2022 10:16 AM I personally read this/these film(s) with this resident Normal [facility] CBC AUTO DIFFon 03-03-2022 BASO # 0.0 103/ul Normal 0.0-0.1 [facility] Comment on above: Performed By: #### C BC #### [facility] [address] [place] [address] Dr. Mariano Mistry Basophils/100 WBC (Bld) 0.4 % Normal 0.2-2.0 [facility] Comment on above: Performed By: #### C BC #### [facility] [address] [place] [address] Dr. Mariano Mistry EO # 0.2 103/ul Normal 0.0-0.7 [facility] Comment on above: Performed By: #### C BC #### [facility] [address] [place] [address] Dr. Mariano Mistry Eosinophils/100 WBC (Bld) 2.4 % Normal 0.9-7.0 [facility] Comment on above: Performed By: #### C BC #### [facility] [address] [place] [address] Dr. Mariano Mistry Erythrocyte distribution width (RBC) [Ratio] 14.4 % Normal 11.0-15.0 [facility] Comment on above: Performed By: #### C BC #### [facility] [address] [place] [address] Dr. Mariano Mistry Hematocrit (Bld) [Volume fraction] 38.0 % Normal 36.0-48.0 [facility] Comment on above: Performed By: #### C BC #### [facility] [address] [place] [address] Dr. Mariano Mistry Hemoglobin (Bld) [Mass/Vol] 12.1 g/dL Normal 12.0-16.0 [facility] Comment on above: Performed By: #### C BC #### [facility] [address] [place] [address] Dr. Mariano Mistry IG # 0.02 10e3/ul Normal 0.00-0.03 [facility] Comment on above: Performed By: #### C BC #### [facility] [address] [place] [address] Dr. Mariano Mistry IG % 0.3 % Normal 0.0-0.5 [facility] Comment on above: Performed By: #### C BC #### [facility] [address] [address] [address] Mariano Mistry LYMPH # 2.3 103/ul Normal 1.2-3.8 [facility] Comment on above: Performed By: #### C BC #### [facility] [address] [address] [address] Mariano Mistry Lymphocytes/100 WBC (Bld) 32.6 % Normal 20.5-60.0 [facility] Comment on above: Performed By: #### C BC #### [facility] [address] [place] [address] Dr. Mariano Mistry MANUAL DIFF REQ NO Normal [facility] Comment on above: Performed By: #### C BC #### [facility] [address] [place] [address] Dr. Mariano Mistry MCH (RBC) [Entitic mass] 28.1 pg Normal 26.7-34.0 [facility] Comment on above: Performed By: #### C BC #### [facility] [address] [place] [address] Dr. Mariano Mistry MCHC (RBC) [Mass/Vol] 31.8 g/dL Normal 29.9-35.2 [facility] Comment on above: Performed By: #### C BC #### [facility] [address] [place] [address] Dr. Mariano Mistry MCV (RBC) [Entitic vol] 88.4 fL Normal 81.0-99.0 [facility] Comment on above: Performed By: #### C BC #### [facility] [address] [place] [address] Dr. Mariano Mistry MONO # 0.4 103/ul Normal 0.3-0.8 [facility] Comment on above: Performed By: #### C BC #### [facility] [address] [place] [address] Dr. Mariano Mistry Monocytes/100 WBC (Bld) 6.1 % Normal 1.7-12.0 [facility] Comment on above: Performed By: #### C BC #### [facility] [address] [address] [address] Mariano Mistry NEUT # 4.1 103/ul Normal 1.4-6.5 [facility] Comment on above: Performed By: #### C BC #### [facility] [address] [place] [address] Dr. Mariano Msitry Neutrophils/100 WBC (Bld) 58.2 % Normal 43.0-75.0 [facility] Comment on above: Performed By: #### C BC #### [facility] [address] [place] [address] Dr. Mariano Mistry Platelet mean volume (Bld) [Entitic vol] 10.7 fL Normal 9.5-13.5 [facility] Comment on above: Performed By: #### C BC #### [facility] [address] [place] [address] Dr. Mariano Mistry PLT 255 103/ul Normal 150-450 [facility] Comment on above: Performed By: #### C BC #### [facility] [address] [place] [address] Dr. Mariano Mistry RBC 4.30 106/ul Normal 4.20-5.40 [facility] Comment on above: Performed By: #### C BC #### [facility] [address] [place] [address] Dr. Mariano Mistry WBC 7.1 103/ul Normal 4.0-11.0 [facility] Comment on above: Performed By: #### C BC #### [facility] [address] [place] [address] Dr. Mariano Mistry GLYCOHEMOGLOBIN A1Con 2021 ADA RECOMMENDATION SEE BELOW Normal [facility] Comment on above: Result Comment: ADA RECOMMENDED LIMIT 4.0 - 6.0 ADA THERAPEUTIC TARGET < 7.0 ACTION SUGGESTED > 7.0 Performed By: #### A 1C #### [facility] [address] [place] [address] Dr. Mariano Mistry Glucose [Mass/Vol] 123 mg/dL Normal [facility] Comment on above: Performed By: #### A 1C #### [facility] [address] [place], [place] [id number] Dr. Mariano Mistry HbA1c (Bld) [Mass fraction] 5.9 % Normal 4.5-6.2 [facility] Comment on above: Performed By: #### A 1C #### [facility] [address] [place] [address] Dr. Mariano Mistry LIPID PROFILEon 03-03-2022 CHOL-HDL RATIO NORM SEE BELOW Normal [facility] Comment on above: Result Comment: 3.3 - 4.4 LOW RISK 4.4 - 7.1 AVERAGE RISK 7.1 - 11.0 MODERATE RISK >11.0 HIGH RISK Performed By: #### T SH, LIPID, LIVER, BMP #### [facility] [address] [place] [address] Dr. Mariano Mistry Cholesterol [Mass/Vol] 194 mg/dL Normal <=200 [facility] Comment on above: Performed By: #### T SH, LIPID, LIVER, BMP #### [facility] [address] [place] [address] Dr. Mariano Mistry Cholesterol in HDL [Mass/Vol] 85 mg/dL Critically high 40-60 [facility] Comment on above: Performed By: #### T SH, LIPID, LIVER, BMP #### [facility] [address] [place] [address] Dr. Mariano Mistry Cholesterol in LDL [Mass/Vol] 93.8 mg/dL Normal [facility] Comment on above: Performed By: #### T SH, LIPID, LIVER, BMP #### [facility] [address] [place] [address] Dr. Mariano Mistry Cholesterol.total/C holesterol in HDL [Mass ratio] 2.3 {ratio} Normal [facility] Comment on above: Performed By: #### T SH, LIPID, LIVER, BMP #### [facility] [address] [place] [address] Dr. Mariano Mistry HDL NORMAL > or = 60 mg/dl - LO W CARDIOVASCULAR RISK <40 mg/dl - HIGH CARDIOVASCULAR RISK Normal [facility] Comment on above: Performed By: #### T SH, LIPID, LIVER, BMP #### [facility] [address] [address] [address] Mariano Mistry LDL CALC NORMAL SEE BELOW Normal [facility] Comment on above: Result Comment: <100 mg/dl OPTIMAL 100 - 129 mg/dl NEAR OR ABOVE OPTIMAL 130 - 159 mg/dl BORDERLINE HIGH 160 - 189 mg/dl HIGH >190 mg/dl VERY HIGH Performed By: #### T SH, LIPID, LIVER, BMP #### [facility] [address] [address] [address] Mariano Mistry Triglyceride [Mass/Vol] 76 mg/dL Normal <=150 [facility] Comment on above: Performed By: #### T SH, LIPID, LIVER, BMP #### [facility] [address] [address] [address] Mariano Mistry VLDL CALC 15.2 mg/dL Normal [facility] Comment on above: Performed By: #### T SH, LIPID, LIVER, BMP #### [facility] [address] [place] [address] Dr. Mariano Mistry LIVER PROFILEon 03-03-2022 Albumin [Mass/Vol] 3.7 g/dL Normal 3.4-5.0 [facility] Comment on above: Performed By: #### T SH, LIPID, LIVER, BMP #### [facility] [address] [address] [address] Mariano Mistry Albumin/Globulin [Mass ratio] 0.9 {ratio} Normal [facility] Comment on above: Performed By: #### T SH, LIPID, LIVER, BMP #### [facility] [address] [address] [address] Mariano Mistry ALP [Catalytic activity/Vol] 109 U/L Normal 46-116 [facility] Comment on above: Performed By: #### T SH, LIPID, LIVER, BMP #### [facility] [address] [place] [address] Dr. Mariano Mistry ALT [Catalytic activity/Vol] 44 U/L Normal 14-59 [facility] Comment on above: Performed By: #### T SH, LIPID, LIVER, BMP #### [facility] [address] [place] [address] Dr. Mariano Mistry AST [Catalytic activity/Vol] 30 U/L Normal 15-37 [facility] Comment on above: Performed By: #### T SH, LIPID, LIVER, BMP #### [facility] [address] [address] [address] Mariano Mistry BILI, CONJUGATED 0.1 mg/dL Normal 0.0-0.2 [facility] Comment on above: Performed By: #### T SH, LIPID, LIVER, BMP #### [facility] [address] [address] [address] Mariano Mistry Bilirubin [Mass/Vol] 0.3 mg/dL Normal 0.2-1.0 [facility] Comment on above: Performed By: #### T SH, LIPID, LIVER, BMP #### [facility] [address] [place] [address] Dr. Mariano Mistry Globulin (S) [Mass/Vol] 4.0 g/dL Normal [facility] Comment on above: Performed By: #### T SH, LIPID, LIVER, BMP #### [facility] [address] [place] [address] Dr. Mariano Mistry Protein [Mass/Vol] 7.7 g/dL Normal 6.4-8.2 [facility] Comment on above: Performed By: #### T SH, LIPID, LIVER, BMP #### [facility] [address] [place] [address] Dr. Mariano Mistry PROF CHEM 8 (BAS METB)on Anion gap [Moles/Vol] 12.5 mmol/L Normal [facility] Comment on above: Performed By: #### T SH, LIPID, LIVER, BMP #### [facility] [address] [place] [address] Dr. Mariano Mistry Calcium [Mass/Vol] 9.0 mg/dL Normal 8.5-10.1 [facility] Comment on above: Performed By: #### T SH, LIPID, LIVER, BMP #### [facility] [address] [place] [address] Dr. Mariano Mistry Chloride [Moles/Vol] 105 mmol/L Normal 98-107 [facility] Comment on above: Performed By: #### T SH, LIPID, LIVER, BMP #### [facility] [address] [address] [address] Mariano Mistry CO2 [Moles/Vol] 26.8 mmol/L Normal 21.0-32.0 [facility] Comment on above: Performed By: #### T SH, LIPID, LIVER, BMP #### [facility] [address] [address] [address] Mariano Mistry Creatinine [Mass/Vol] 0.48 mg/dL Critically low 0.55-1.02 [facility] Comment on above: Performed By: #### T SH, LIPID, LIVER, BMP #### [facility] [address] [address] [address] Mariano Mistry EGFR-AF SPANISH >60 Normal >=60 [facility] Comment on above: Performed By: #### T SH, LIPID, LIVER, BMP #### [facility] [address] [address] [address] Mariano Mistry EGFR-NON AF SPANISH >60 Normal >=60 [facility] Comment on above: Performed By: #### T SH, LIPID, LIVER, BMP #### [facility] [address] [address] [address] Mariano Mistry Glucose [Mass/Vol] 106 mg/dL Normal 74-106 [facility] Comment on above: Performed By: #### T SH, LIPID, LIVER, BMP #### [facility] [address] [address] [address] Mariano Mistry Potassium [Moles/Vol] 4.3 mmol/L Normal 3.5-5.1 [facility] Comment on above: Performed By: #### T SH, LIPID, LIVER, BMP #### [facility] [address] [address] [address] Mariano Mistry Sodium [Moles/Vol] 140 mmol/L Normal 136-145 [facility] Comment on above: Performed By: #### T SH, LIPID, LIVER, BMP #### [facility] [address] [address] [address] Mariano Mistry Urea nitrogen [Mass/Vol] 24.0 mg/dL Critically high 7.0-18.0 [facility] Comment on above: Performed By: #### T SH, LIPID, LIVER, BMP #### [facility] [address] [place] [address] Dr. Mariano Mistry Urea nitrogen/Creatinine [Mass ratio] 50.0 mg/mg Normal [facility] Comment on above: Performed By: #### T SH, LIPID, LIVER, BMP #### [facility] [address] [place] [address] Dr. Mariano Mistry TSHon 03-03-2022 TSH 2.321 uIU/mL Normal 0.358-3.740 [facility] Comment on above: Performed By: #### T SH, LIPID, LIVER, BMP #### [facility] [address] [place] [address] Dr. Mariano Mistry TSH RANGE SEE BELOW Normal [facility] Comment on above: Result Comment: <0.3 4 UIU/ml HYPERTHYROID 0.34-5.60 UIU/ml EUTHYROID >5.60 UIU/ml HYPOTHYROID Performed By: #### T SIRI, LIPID, LIVER, BMP #### [facility] [address] [place] [address] Dr. Mariano Mistry VITAMIN D 25 OHon 03-03-2022 VIT D 25-OH 17.9 ng/mL Normal [facility] Comment on above: Performed By: #### V ITAD #### [facility] [address] [place] [address] Dr. Mariano Mistry VIT D RANGES SEE BELOW Normal [facility] Comment on above: Result Comment: <20 ng/mL Vit D deficient 20 - <30 ng/mL Vit D insufficient 30 - 100 ng/mL Vit D sufficient >100 ng/mL Potential Toxicity Performed By: #### V ITAD #### [facility] [address] [place] [address] Dr. Mariano Mistry Encounters Encounter Date Encounter Type Care Provider Facility Start: 02-03-2024 End: 02-03-2024 ambulatory LAVELL RIVER Not Available Start: 01-23-2024 End: 01-24-2024 ambulatory LAVELL RIVER Not Available Start: 01-16-2024 End: 01-17-2024 ambulatory ABHISHEK RAMOS Not Available Start: 01-04-2024 End: 01-04-2024 ambulatory LAVELL RIVER Not Available Start: 09-14-2023 End: 09-14-2023 ambulatory LAVELL RIVER Not Available Start: 06-16-2023 End: 06-17-2023 ambulatory CELENA [facility] Start: 12-09-2022 ambulatory CELENA [facility] Start: 10-28-2022 End: 10-29-2022 ambulatory [facility] Start: 07-20-2022 End: 07-21-[address] LAVELL RIVER Facility: Start: 05-12-2022 End: 05-13-2022 ambulatory CELENA MARSH Facility:[facility] Start: 03-12-2022 End: 03-13-[address] DOCTOR FREIRE Facility:[facility] Start: 03-10-2022 Encounter for genera l adult medical examination without abnormal findings DR LAVELL RIVER [facility] Start: 03-03-2022 End: 03-04-[address] LAVELL RIVER Facility:[facility] Start: 03-03-2022 End: 03-04-2022 Encounter for general adult medical examination without abnormal findings DR LAVELL RIVER Facility:[facility] Start: 11-16-2016 End: 11-18-2016 Evaluation and management of inpatient Solomon Walters [place] Date Payer Category Payer Private Health Insurance [id number] 1965 Unknown [id number] [id number] 1965 Unknown [id number] 2.16.84 [id number] 1965 Unknown [id number] 2.16.84 [id number] 1965 Unknown [id number] 2.16.84 [id number] 1965 Unknown [id number] 2.16.84 [id number] 1965 Unknown [id number] 2.16.84 [id number] 1965 Unknown [id number] 2.16.84 [id number] 1965 Unknown [id number] 2.16.84 [id number] 1965 Unknown [id number] 1959 Private Health Insurance [id number] Progress note 06-16-2023 Note Date & Type Note Facility 06-16-2023 Note Orthopedic Surgery Subjective Follow-up of the Right Knee and Pain of the Left Knee 06/16/23 Patient is 57 y/o female presenting today for follow up for her right knee. She is 9 months post-op s/p R total knee revision - 3rd time (DOS: 09/10/2022). She is overall happy with her recovery. 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 She has good ROM. She continues to take oxycodone once a day before work with good pain relief. She has no new medical or surgical history. She did recently fall twice in the last couple weeks, first on 06/02/2023 at home hurting her left knee and second on 06/03/2023 at working hurting her right knee. She reports that both times were due to her tripping and not due to any pain or locking of either of the knees. She was using a cane and walker for the first few days after the fall but is currently able to walk without either of them. She currently reports a 2/10 pain, but relates the pain to the recent fall and for the past few months has had very minimal pain. She denies any fever or chills. 12/09/22 Patient is presenting today for follow-up for her right knee. She is status post right total knee revision date of surgery 09/10/2022. Patient is 3 months postop. He is doing very well. Patient has mild pain she stated that her pain is occasional 3/10. She is walking very well She is satisfied with the results of the surgery. She denies any fever chills, denies any redness hotness or inflammation. Patient has good range of motion and return to her daily life activities. Patient is here today to discuss possible return to work Tuesday with no restrictions. Patient is accompanied by her . Allyssa Valenzuela is a 57 y.o. year old female presenting for evaluation of s/p 2 weeks rev Right TKA (DOS 09/10/22). She states her pain is 7/10, she is taking Tylenol and oxicodone BID. She states her knee feels more stable and her pain is different from prior to surgery. She has been doing home PT and working on ROM. She finished her doxycycline post operative doses. She is continuing to take ASA 325mg. She has been icing and elevating. She is walking with a walker. She states she has Denies fever, chills, nausea, vomiting, SOB, chest pain. 10/28/2022 Patient is presenting today to follow up for her Left knee.. she is S/P Right TKA revision arthroplasty DOS 09/10/2023 she is almost 7 weeks post op, she is overall doing well, she healed her incision well , walks well with a cane, pain controlled and advancing very well with PT. She denied any fever or chills, denied any pedal swelling, denied any tingling or numbness of her RLE. Accompanied by her , New X rays obtained today. Patient History Past Surgical History: Procedure Laterality Date SECTION, LOW TRANSVERSE HYSTERECTOMY JOINT REPLACEMENT Bilateral KNEES OOPHORECTOMY TOTAL KNEE ARTHROPLASTY Right VEIN LIGATION AND STRIPPING Past Medical History: Diagnosis Date Acute respiratory failure (CMS/HCC) Bronchitis Depression Edema of both lower extremities due to peripheral venous insufficiency OA (osteoarthritis) Obesity Pneumonia PONV (postoperative nausea and vomiting) Sinusitis Varicose veins of both lower extremities Objective General: Body mass index is 51.21 kg/m???. No acute distress, comfortable Respiratory: Unlabored breathing with normal rate, no cough Cardiovascular: Warm well perfused extremities Psych: Appropriate mood behavior Right Knee: Inspection- mild edema and ecchymosis of tibial tuberosity, no effusion; well-healed incision of surgery - no redness, warmness, or drainage Tender to palpation over tibial tuberosity Nontender to palpation over medial and lateral joint lines and quadriceps tendon Knee ROM: Extension- 0??? Flexion- 110??? Strength: Knee Flexion 5/5 Knee Extension 5/5 Sensation: intact over superficial peroneal, deep peroneal and tibial nerve distributions Stability: Stable to varus and valgus stress Stable to anterior and posterior thrust Gait: heel toe pattern, normal Knee Special Tests: Not Applicable Intact neurovascular Imaging: Imaging reviewed today XR knee 3 views right (06/16/23): showed Right TKA revision implants in good position, no subsidence or migration of loosening. Imaging personally reviewed and interpreted by attending physician. Findings discussed with patient. Assessment/Plan Allyssa Valenzuela is a 57 y.o. year old female 3 months s/p 3rd revision of R TKA (DOS 09/10/22). Doing very well satisfied with the results. - WBAT LLE. - Patient can continue with daily activities. - Discussed being especially careful with R knee and that we're unable to do any further revision. - Patient instructed to receive prophylactic antibiotics prior to dental procedures. - Follow-up in 1 year for reevaluation with new x-rays of both L a (more content not included)... [facility] Progress note 12-09-2022 Note Date & Type Note Facility 12-09-2022 Note Orthopedic Surgery Subjective Pain and Post-op of the Right Knee (R TKA follow up, needs Outpatient PT ) 12/09/22 Patient is presenting today for follow-up for her right knee. She is status post right total knee revision date of surgery 09/10/2022. Patient is 3 months postop. He is doing very well. Patient has mild pain she stated that her pain is occasional 3/10. She is walking very well She is satisfied with the results of the surgery. She denies any fever chills, denies any redness hotness or inflammation. Patient has good range of motion and return to her daily life activities. Patient is here today to discuss possible return to work Tuesday with no restrictions. Patient is accompanied by her . Allyssa Valenzuela is a 56 y.o. year old female presenting for evaluation of s/p 2 weeks rev Right TKA (DOS 09/10/22). She states her pain is 7/10, she is taking Tylenol and oxicodone BID. She states her knee feels more stable and her pain is different from prior to surgery. She has been doing home PT and working on ROM. She finished her doxycycline post operative doses. She is continuing to take ASA 325mg. She has been icing and elevating. She is walking with a walker. She states she has Denies fever, chills, nausea, vomiting, SOB, chest pain. 10/28/2022 Patient is presenting today to follow up for her Left knee.. she is S/P Right TKA revision arthroplasty DOS 09/10/2023 she is almost 7 weeks post op, she is overall doing well, she healed her incision well , walks well with a cane, pain controlled and advancing very well with PT. She denied any fever or chills, denied any pedal swelling, denied any tingling or numbness of her RLE. Accompanied by her , New X rays obtained today. Patient History Past Surgical History: Procedure Laterality Date SECTION, LOW TRANSVERSE CT CHEST ANGIOGRAM W AND/OR WO IV CONTRAST 07/12/2022 CT CHEST ANGIOGRAM W AND/OR WO IV CONTRAST 07/12/2022 HYSTERECTOMY JOINT REPLACEMENT Bilateral KNEES OOPHORECTOMY TOTAL KNEE ARTHROPLASTY Right VEIN LIGATION AND STRIPPING Past Medical History: Diagnosis Date Acute respiratory failure (CMS/HCC) Bronchitis Depression Edema of both lower extremities due to peripheral venous insufficiency OA (osteoarthritis) Obesity Pneumonia PONV (postoperative nausea and vomiting) Sinusitis Varicose veins of both lower extremities Objective General: There is no height or weight on file to calculate BMI. No acute distress, comfortable Respiratory: Unlabored breathing with normal rate, no cough Cardiovascular: Warm well perfused extremities Psych: Appropriate mood behavior Right : Gait exam , patient walking well with a cane Exam of the Right knee showed well healed incision of surgery, no redness hotness or inflammation. No drainage. No pedal swelling, ROM 0- 115 deg , no instability , no extension lag. No DVT , intact N/V exam RLE. IMAGING : None today Assessment/Plan Allyssa Valenzuela is a 56 y.o. year old female 3 months s/p rev R TKA (DOS 09/10/22). -WBAT LLE. -Patient is cleared to return back to work full duties. Patient instructed to receive prophylactic antibiotics prior to dental procedures. Follow-up in 6 months for reevaluation with new x-rays. Discussed with the patient results of clinical exam and imaging. All questions answered to his satisfaction. [facility] Progress note 10-28-2022 Note Date & Type Note Facility 10-28-2022 Note Orthopedic Surgery Subjective Pain of the Right Knee 10/29/22 Allyssa Valenzuela is a 56 y.o. year old female presenting for evaluation of s/p 2 weeks rev Right TKA (DOS 09/10/22). She states her pain is 7/10, she is taking Tylenol and oxicodone BID. She states her knee feels more stable and her pain is different from prior to surgery. She has been doing home PT and working on ROM. She finished her doxycycline post operative doses. She is continuing to take ASA 325mg. She has been icing and elevating. She is walking with a walker. She states she has Denies fever, chills, nausea, vomiting, SOB, chest pain. 10/28/2022 Patient is presenting today to follow up for her Left knee.. she is S/P Right TKA revision arthroplasty DOS 09/10/2023 she is almost 7 weeks post op, she is overall doing well, she healed her incision well , walks well with a cane, pain controlled and advancing very well with PT. She denied any fever or chills, denied any pedal swelling, denied any tingling or numbness of her RLE. Accompanied by her , New X rays obtained today. Patient History Past Surgical History: Procedure Laterality Date SECTION, LOW TRANSVERSE CT CHEST ANGIOGRAM W AND/OR WO IV CONTRAST 07/12/2022 CT CHEST ANGIOGRAM W AND/OR WO IV CONTRAST 07/12/2022 HYSTERECTOMY JOINT REPLACEMENT Bilateral KNEES OOPHORECTOMY TOTAL KNEE ARTHROPLASTY Right VEIN LIGATION AND STRIPPING Past Medical History: Diagnosis Date Acute respiratory failure (CMS/HCC) Bronchitis Depression Edema of both lower extremities due to peripheral venous insufficiency OA (osteoarthritis) Obesity Pneumonia PONV (postoperative nausea and vomiting) Sinusitis Varicose veins of both lower extremities Objective General: Body mass index is 51.21 kg/m???. No acute distress, comfortable Respiratory: Unlabored breathing with normal rate, no cough Cardiovascular: Warm well perfused extremities Psych: Appropriate mood behavior Right : Gait exam , patient walking well with a cane Exam of the Right knee showed well healed incision of surgery, no redness hotness or inflammation. No drainage. No pedal swelling, ROM 0- 115 deg , no instability , no extension lag. No DVT , intact N/V exam RLE. IMAGING : X rays of the Right knee 3 views obtained today in clinic independently reviewed and interpreted by me showed Right TKA revision implants in good alignment with no subsidence or migration. Assessment/Plan Allyssa Valenzuela is a 56 y.o. year old female 7 weeks s/p rev R TKA (DOS 09/10/22). -WBAT LLE. Recommended using a cane or a walker until restore her quad strength to avoid buckling of the knee. - F/U in 6 weeks for clinical eval. Will discuss return to work. Discussed prophylacitic abx prior to dental work. Discussed with the patient the results of clinical exam and imaging , all questions answered to her satisfaction. [facility] Summary Purpose Family History No Family History Records FoundNo Family History Records FoundNo Family History Records FoundNo Family History Records FoundNo Family History Records FoundNo Family History Records Found Advance Directives No Advanced Directives Records FoundNo Advanced Directives Records FoundNo Advanced Directives Records FoundNo Advanced Directives Records FoundNo Advanced Directives Records FoundNo Advanced Directives Records Found Additional Source Comments INFORMATION SOURCE (unrecogn ized section and content) DATE CREATED AUTHOR 03/24/2018 [facility] DATE CREATED AUTHOR AUTHOR'S ORGANIZ ATION 05/02/2022 [facility] dical Specialist DATE CREATED AUTHOR AUTHOR'S ORGANIZ ATION 05/14/2022 [facility] DATE CREATED AUTHOR AUTHOR'S ORGANIZ ATION 07/25/2022 [facility] DATE CREATED AUTHOR AUTHOR'S ORGANIZ ATION 10/20/2023 [facility] DATE CREATED AUTHOR AUTHOR'S ORGANIZ ATION 02/05/2024 [facility] dical Specialists EPIC FOR RECORDS PERTAINING TO PATIENTS WHO ARE OR HAVE BEEN ENROLLED IN A CHEMICAL DEPENDENCY/SUBSTANCEABUSE PROGRAM, SOME INFORMATION MAY BE OMITTED. This clinical summary was aggregated from multiple sources. Caution should be exercised in using it in the provision of clinical care. This summary normalizes information from multiple sources, and as a consequence, information in this document may materially change the coding, format and clinical context of patient data. In addition, data may be omitted in some cases. CLINICAL DECISIONS SHOULD BE BASED ON THE PRIMARY CLINICAL RECORDS. [facility] provides no warranty or guarantee of the accuracy or completeness of information in this document.
--- NOTE | 2024-03-02 07:52 | VEIN_ITS ---
The [address] [address] Patient Name: ALLYSSA ELENA MRN: [id number] date: 1965 Sex: F Assigned Patient Location: Current Patient Location: Accession/Order Number: [id number] Exam Date: 03/02/2024 08:13 Report Date: 03/02/2024 11:52 At the request of: DIETER CLAUDIO Procedure: VC Endovenous Ablation 1VeinRT EXAMINATION: VC Endovenous Ablation 1VeinRT HISTORY: Pain due to varicose veins of bilateral legs I83.813 The risks and benefits of the procedure had been previously discussed, and were rediscussed at length. Informed written consent was obtained. Mariano Ma RN and Erika Hunt RDMS, RVT assisted. Time out procedure was performed. The right lower extremity was prepared and draped in the usual sterile fashion to allow knee flexion in the sterile field. Duplex ultrasound probe was draped in a sterile cover, sterile transmission gel was used. Venous mapping was performed with the areas of dilation and large tributaries marked. The total length was 23 cm from the entry 3 cm above the ankle to just proximal to insertion into the distal thigh musculature. The diameter of the right small saphenous vein ranged from 5.8 mm. A 30 gauge needle and 1% buffered lidocaine was used to anesthetize the entry site. A 4 mm incision was made with a scalpel and the saphenous vein was entered percutaneously under direct ultrasound guidance with a micropuncture set, a single stick was successful in gaining access. A micro-guide wire was inserted and the needle removed. A micro-set including a dilator was inserted over the microwire and the needle and dilator were removed. A guide wire was inserted through the micro-set and guided through the saphenous vein to the saphenofemoral junction. The dilator was removed and an introducer sheath was inserted over the wire until the end of the sheath entered the saphenofemoral junction. The dilator and wire were removed and the 600 micron fiber was introduced and placed and positioned so that it extended beyond the sheath and was 3 cm distal to the saphenofemoral or saphenopopliteal junction. Final position of the fiber was determined by ultrasound guidance and duplex imaging. Tumescent anesthetic was delivered by ultrasound guidance. 100 cc of fluid was delivered along the entire course of the saphenous vein. The solution consisted of 1000 cc of normal saline with 40 mL of 1% lidocaine and 20 mL of sodium bicarbonate. A final positioning check was made. The energy source was turned on by means of the foot pedal and the fiber and sheath were withdrawn. The total number of Joules delivered was 1239. The laser was active for 155 seconds under continuous pulse, average laser use of 8 J. Laser start time: 8:53 AM Laser stop time: 8:56 AM Date: 03/02/2024. A duplex ultrasound revealed compressibility and flow at the saphenofemoral junction immediately after the procedure. Hemostasis at the access site was achieved. The skin incision of the saphenous vein was closed with a 4 x 4. A compression stocking was applied. Postop instructions were given. A follow up appointment was recommended and scheduled. The patient tolerated the procedure well. Electronically authenticated by: TAMARA FITZGERALD Date: 03/02/2024 11:52
[2024-03-02] MEDS: 0.9 % SODIUM CHLORIDE 500 ML, LIDOCAINE HCL 20 ML, SODIUM BICARBONATE 10 MEQ INJ (08:15)
[2024-03-02] MEDS: LIDOCAINE HCL 1% 100 MG/10 ML MDV INJ (08:16)
== END 2024-03-02 07:50 | disposition home or self-care (01) ==
LOC: VC 07:49
PROVIDERS: PCP Radiology Diagnostic Radiology; Visit Provider Radiology Diagnostic Radiology
DX: I83.813 Varicose veins of bilateral lower extremities with pain (principal)
CPT/HCPCS: 36478

== ENCOUNTER 2024-03-09 07:54 | Outpatient (OUT) | payer OTHER, SELFPAY ==
--- OUTSIDE RECORDS SUMMARY | 2024-03-09 07:57 | XMS_ITS ---
Patient Summarization (C-CDA 2.1 CCD) Created on: March 09, 2024 ALLYSSA VALENZUELA : 1965 Sex: Female Author Organization Sample organization Care Team Providers Care Hospice Volunteer Coordinator Name Role Phone Solomon Walters Unavailable Unavailable Solomon Walters Unavailable Unavailable Solomon Walters Unavailable Unavailable GISELLE LEWIS~[phone] UNKNOWN Unavailable Unavailable SALMA, CELENA R Admitting Unavailable SALMA, CELENA R Attending Unavailable SELF, REFERRED Primary Care Unavailable SELF, REFERRED Referring Unavailable NADERER, DR LAVELL Zamora Admitting Unavailable [...] Unavailable NADERER, DR LAVELL Zamora Consulting Unavailable NADERER, LAVELL Attending Unavailable RACHEL, ABHISHEK Attending Unavailable NADERER, LAVELL Referring Unavailable NADERER, LAVELL Attending Unavailable NADERER, LAVELL Referring Unavailable NADERER, LAVELL Attending Unavailable SALMA, CELENA Attending Unavailable SALMA, CELENA Referring Unavailable Allergies Allergy Classification Reported Allergen(s) Allergy Type Date of Onset Reaction(s) Facility (1 source) chlorhexidine; Translations: [chlorhexidine topical] Drug Allergy [facility] Repository (2 sources) nickel; Translations: [Nickel] Drug Allergy [facility]OF [facility] Repository (1 source) No Known Medication Allergies; Translations: [No Known Medication Allergies] Propensity to adverse reactions (disorder) [facility] Repository (1 source) PROPOXYPHENE N-ACETAMINOPHEN; Translations: [PROPOXYPHENE N-ACETAMINOPHEN] Propensity to adverse reactions to drug (disorder) 7 [facility] Repository Encounters Encounter Date Encounter Type Care Provider Facility Start: 02-03-2024 End: 02-03-2024 ambulatory LAVELL RIVER Not Available Start: 01-23-2024 End: 01-24-2024 ambulatory LAVELL RIVER Not Available Start: 01-16-2024 End: 01-17-2024 ambulatory ABHISHEK RAMOS Not Available Start: 01-04-2024 End: 01-04-2024 ambulatory LAVELL RIVER Not Available Start: 09-14-2023 End: 09-14-2023 ambulatory LAVELL RIVER Not Available Start: 06-16-2023 End: 06-17-2023 ambulatory CELENA MARSH [facility] Start: 07-20-2022 End: 07-21-[address] LAVELL RIVER Facility:[facility] Start: 05-12-2022 End: 05-13-2022 ambulatory CELENA MARSH Facility:[facility] Start: 03-12-2022 End: 03-13-[address] DOCTOR FREIRE Facility:[facility] Start: 03-10-2022 Encounter for genera l adult medical examination without abnormal findings DR LAVELL RIVER [facility] Start: 03-03-2022 End: 03-04-[address] LAVELL RIVER Facility:[facility] Start: 03-03-2022 End: 03-04-2022 Encounter for general adult medical examination without abnormal findings DR LAVELL RIVER Facility:[facility] Start: 11-16-2016 End: 11-18-2016 Evaluation and management of inpatient Solomon Walters Facility:[facility] Payers Date Payer Category Payer Private Health Insurance [id number] 1965 Unknown [id number] 2.16.8 [id number] 1965 Unknown [id number] 2.16.84 [id number] 1965 Unknown [id number] 2.16.84 [id number] 1965 Unknown [id number] 2.16.84 [id number] 1965 Unknown [id number] 2.16.84 [id number] 1965 Unknown [id number] 2.16.84 [id number] 1965 Unknown [id number] 2.16.84 [id number] 1965 Unknown [id number] 2.16.84 [id number] 1965 Unknown [id number] [id number] 1959 Private Health Insurance [id number] Problems Problem Classification Problem Date Documented Da [...] Test Name Value Interpretation Reference Range Facility 36on 03-01-2024 36 Patient requesting antibiotics for new dentist Ron joel Appt 03/14/24 Please give patient a call once sent [facility] 36 RX SENT TO PHARMACY //[facility] BI MAMMOGRAM SCREENING TOMOS YNTHESIS BILATERALon 01-23-2024 [...] IS VERY IMPORTANT TO YOUR HEALTH. THE [place] [employer] GUIDELINES RECOMMEND THAT WOMEN 40 [...] Not Available Orders Onlyon 06-17-2023 Orders Only [id number] Allyssa Valenzuela 1965 [facility] 06/17/2023 CELENA ORTEGA [facility] Family History Family history unknown: Yes Normal [facility] Follow-Upon 06-16-2023 Follow-Up [id number] Allyssa Valenzuela 1965 [facility] 06/16/2023 CELENA ORTEGA [facility] Family History Family history unknown: Yes Level of Service:76148 MI OFFICE/OUTPATIENT ESTABLISHED LOW MDM 20-29 MIN Reason for Visit and Comments: Follow-up [769082] Pain [136] Normal [facility] HEMOGLOBINon 07-20-2022 Hemoglobin (Bld) [Mass/Vol] 13.5 g/dL Normal 12.0-16.0 [facility] Comment on above: Performed By: #### H GB #### [facility] [address] [place] [address] Dr. Mariano Mistry NM 3 PHASE BONE SCANon 05-12 NM 3 PHASE BONE SCAN [facility] Department of Radiology [address] [place] [address] ===== Patient Name: LALYSSA VALENZUELA : 1965 Sex: F Age: Race: Other Pt. Location: 84 Patient Status: D Ordered Date: 04/19/2022 7:15:00 AM Completed Date: 05/12/2022 02:58 PM Requesting Provider: CELENA MARSH Attending Provider: CELENA MARSH Report Copy To: Signs & Symptoms: Z96.659 Presence of unspecified artificial knee joint I10 History: Maria Guadalupe, PHONE:[phone],*NEE DS ORTHO F/U APPT. Comments: Evaluate Exam: NM [...] excluded Electronically signed: Kelsey Lockett. Transcribed by: [email or web address], User Resident: Electronically Signed by: KELSEY LOCKETT @ 05/13/2022 03:56 PM Normal [facility] Comment on above: Order Comment: Evalu [...] by Jean Blanton on 04/29/2022 0947 Normal [facility] Chief CRPon 03-12-2022 CRP 1.9 mg/dL Critically high <=1.0 [facility] Comment on above: Performed By: #### C RP #### [facility] [address] [place] [address] Dr. Mariano Mistry [facility] SED RATE 32 mm/hr Critically high <=30 [facility] Comment on above: Performed By: #### S EDR #### [facility] [address] [place] [address] Dr. Mariano Mistry KNEE LEFT 4VWSon 03-11-2022 KNEE LEFT 4VWS [facility] Department of Radiology [address] [place] [phone] ===== Patient Name: ALLYSSA VALENZUELA : 1965 Sex: F Age: Race: Other Pt. Location: Patient Status: D Ordered Date: 03/11/2022 10:10:00 AM Completed Date: 03/11/2022 10:13 AM Requesting Provider: JOAQUINA MASON Attending Provider: JOAQUINA MASON Report Copy To: SELF, REFERRED Signs & Symptoms: M25.561 Pain in right knee I10 History: [place] Comments: Exam: KNEE LEFT 4VWS ===== KNEE [...] fall. Electronically signed: TIFFANIE ORTEGA. Transcribed by: [email or web address], User Resident: Electronically Signed by: TIFFANIE ORTEGA @ 03/14/2022 11:12 AM Normal [facility] KNEE RIGHT 4 [facility] 2 KNEE RIGHT 4 [facility] Department of Radiology [address] [place] [phone] ===== Patient Name: ALLYSSA VALENZUELA : 1965 Sex: F Age: Race: Other Pt. Location: 84 Patient Status: D Ordered Date: 03/11/2022 10:10:00 AM Completed Date: 03/11/2022 10:13 AM Requesting Provider: JOAQUINA MASON Attending Provider: JOAQUINA MASON Report Copy To: SELF, REFERRED Signs & Symptoms: M25.561 Pain in right knee I10 History: Maria Guadalupe Comments: Exam: KNEE RIGHT 4 VWS ===== [...] hardware. Approved by:Hay Stanley03/12/2022 8:45 AM. I, Gureita Patel,have reviewed the image(s) and agree with the findings in this report. Electronically signed: Guerita Patel. Transcribed by: [email or web address], User Resident: HAY LIZAMA Electronically Signed by: GUERITA PATEL @ 03/12/2022 10:16 AM I personally read this/these film(s) with this resident Normal [facility] CBC AUTO DIFFon 03-03-2022 BASO # 0.0 103/ul Normal 0.0-0.1 [facility] Comment on above: Performed By: #### C BC #### [facility] [address] [address] [address] Mariano Mistry Basophils/100 WBC (Bld) 0.4 % Normal 0.2-2.0 [facility] Comment on above: Performed By: #### C BC #### [facility] [address] [place] [address] Dr. Mariano Mistry EO # 0.2 103/ul Normal 0.0-0.7 [facility] Comment on above: Performed By: #### C BC #### [facility] [address] [place] [address] Dr. Mariano Mistry Eosinophils/100 WBC (Bld) 2.4 % Normal 0.9-7.0 [facility] Comment on above: Performed By: #### C BC #### [facility] [address] [place] [address] Dr. Mariano Mistry Erythrocyte distribution width (RBC) [Ratio] 14.4 % Normal 11.0-15.0 [facility] Comment on above: Performed By: #### C BC #### [facility] [address] [place] [address] Dr. Mariano Mistry Hematocrit (Bld) [Volume fraction] 38.0 % Normal 36.0-48.0 [facility] Comment on above: Performed By: #### C BC #### [facility] [address] [place] [address] Dr. Mariano Mistry Hemoglobin (Bld) [Mass/Vol] 12.1 g/dL Normal 12.0-16.0 [facility] Comment on above: Performed By: #### C BC #### [facility] [address] [place] [address] Dr. Mariano Mistry IG # 0.02 10e3/ul Normal 0.00-0.03 [facility] Comment on above: Performed By: #### C BC #### [facility] [address] [place] [address] Dr. Mariano Mistry IG % 0.3 % Normal 0.0-0.5 [facility] Comment on above: Performed By: #### C BC #### [facility] [address] [place] [address] Dr. Mariano Mistry LYMPH # 2.3 103/ul Normal 1.2-3.8 [facility] Comment on above: Performed By: #### C BC #### [facility] [address] [place] [address] Dr. Mariano Msitry Lymphocytes/100 WBC (Bld) 32.6 % Normal 20.5-60.0 [facility] Comment on above: Performed By: #### C BC #### [facility] [address] [place] [address] Dr. Mariano Mistry MANUAL DIFF REQ NO Normal [facility] Comment on above: Performed By: #### C BC #### [facility] [address] [place] [address] Dr. Mariano Mistry MCH (RBC) [Entitic mass] 28.1 pg Normal 26.7-34.0 [facility] Comment on above: Performed By: #### C BC #### [facility] [address] [place] [address] Dr. Mariano Mistry MCHC (RBC) [Mass/Vol] 31.8 g/dL Normal 29.9-35.2 [facility] Comment on above: Performed By: #### C BC #### [facility] [address] [place] [address] Dr. Mariano Mistry MCV (RBC) [Entitic vol] 88.4 fL Normal 81.0-99.0 [facility] Comment on above: Performed By: #### C BC #### [facility] [address] [place] [address] Dr. Mariano Mistry MONO # 0.4 103/ul Normal 0.3-0.8 [facility] Comment on above: Performed By: #### C BC #### [facility] [address] [place] [address] Dr. Mariano Mistry Monocytes/100 WBC (Bld) 6.1 % Normal 1.7-12.0 [facility] Comment on above: Performed By: #### C BC #### [facility] [address] [place] [address] Dr. Mariano Mistry NEUT # 4.1 103/ul Normal 1.4-6.5 [facility] Comment on above: Performed By: #### C BC #### [facility] [address] [place] [address] Dr. Mariano Mistry Neutrophils/100 WBC (Bld) 58.2 % Normal 43.0-75.0 [facility] Comment on above: Performed By: #### C BC #### [facility] [address] [place] [address] Dr. Mariano Mistry Platelet mean volume (Bld) [Entitic vol] 10.7 fL Normal 9.5-13.5 [facility] Comment on above: Performed By: #### C BC #### [facility] [address] [place] [address] Dr. Mariano Mistry PLT 255 103/ul Normal 150-450 [facility] Comment on above: Performed By: #### C BC #### [facility] [address] [place] [address] Dr. Mariano Mistry RBC 4.30 106/ul Normal 4.20-5.40 [facility] Comment on above: Performed By: #### C BC #### [facility] [address] [place] [address] Dr. Mariano Mistry WBC 7.1 103/ul Normal 4.0-11.0 [facility] Comment on above: Performed By: #### C BC #### [facility] [address] [place] [address] Dr. Mariano Mistry GLYCOHEMOGLOBIN A1Con 2021 ADA RECOMMENDATION SEE BELOW Normal [facility] Comment on above: Result Comment: ADA RECOMMENDED LIMIT 4.0 - 6.0 ADA THERAPEUTIC TARGET < 7.0 ACTION SUGGESTED > 7.0 Performed By: #### A 1C #### [facility] [address] [place] [address] Dr. Mariano Mistry Glucose [Mass/Vol] 123 mg/dL Normal [facility] Comment on above: Performed By: #### A 1C #### [facility] [address] [place] [address] Dr. Mariano Mistry HbA1c (Bld) [Mass fraction] 5.9 % Normal 4.5-6.2 [facility] Comment on above: Performed By: #### A 1C #### [facility] [address] [address] [address] Mariano Mistry LIPID PROFILEon 03-03-2022 CHOL-HDL RATIO NORM SEE BELOW Normal [facility] Comment on above: Result Comment: 3.3 - 4.4 LOW RISK 4.4 - 7.1 AVERAGE RISK 7.1 - 11.0 MODERATE RISK >11.0 HIGH RISK Performed By: #### T SH, LIPID, LIVER, BMP #### [facility] [address] [address] [address] Mariano Mistry Cholesterol [Mass/Vol] 194 mg/dL Normal <=200 [facility] Comment on above: Performed By: #### T SH, LIPID, LIVER, BMP #### [facility] [address] [address] [address] Mariano Mistry Cholesterol in HDL [Mass/Vol] 85 mg/dL Critically high 40-60 [facility] Comment on above: Performed By: #### T SH, LIPID, LIVER, BMP #### [facility] [address] [address] [address] Mariano Mistry Cholesterol in LDL [Mass/Vol] 93.8 mg/dL Normal [facility] Comment on above: Performed By: #### T SH, LIPID, LIVER, BMP #### [facility] [address] [address] [address] Mariano Mistry Cholesterol.total/C holesterol in HDL [Mass ratio] 2.3 {ratio} Normal [facility] Comment on above: Performed By: #### T SH, LIPID, LIVER, BMP #### [facility] [address] [address] [address] Mariano Mistry HDL NORMAL > or = 60 mg/dl - LO W CARDIOVASCULAR RISK <40 mg/dl - HIGH CARDIOVASCULAR RISK Normal [facility] Comment on above: Performed By: #### T SH, LIPID, LIVER, BMP #### [facility] [address] [address] [address] Mariano Mistry LDL CALC NORMAL SEE BELOW Normal [facility] Comment on above: Result Comment: <100 mg/dl OPTIMAL 100 - 129 mg/dl NEAR OR ABOVE OPTIMAL 130 - 159 mg/dl BORDERLINE HIGH 160 - 189 mg/dl HIGH >190 mg/dl VERY HIGH Performed By: #### T SIRI, LIPID, LIVER, BMP #### [facility] [address] [address] [address] Mariano Mistry Triglyceride [Mass/Vol] 76 mg/dL Normal <=150 [facility] Comment on above: Performed By: #### T SH, LIPID, LIVER, BMP #### [facility] [address] [address] [address] Mariano Mistry VLDL CALC 15.2 mg/dL Normal [facility] Comment on above: Performed By: #### T SIRI, LIPID, LIVER, BMP #### [facility] [address] [place] [address] Dr. Mariano Mistry LIVER PROFILEon 03-03-2022 Albumin [Mass/Vol] 3.7 g/dL Normal 3.4-5.0 [facility] Comment on above: Performed By: #### T SIRI, LIPID, LIVER, BMP #### [facility] [address] [place] [address] Dr. Mariano Mistry Albumin/Globulin [Mass ratio] 0.9 {ratio} Normal [facility] Comment on above: Performed By: #### T SIRI, LIPID, LIVER, BMP #### [facility] [address] [place] [address] Dr. Mariano Mistry ALP [Catalytic activity/Vol] 109 U/L Normal 46-116 [facility] Comment on above: Performed By: #### T SIRI, LIPID, LIVER, BMP #### [facility] [address] [place] [address] Dr. Mariano Mistry ALT [Catalytic activity/Vol] 44 U/L Normal 14-59 [facility] Comment on above: Performed By: #### T SH, LIPID, LIVER, BMP #### [facility] [address] [place] [address] Dr. Mariano Mistry AST [Catalytic activity/Vol] 30 U/L Normal 15-37 [facility] Comment on above: Performed By: #### T SH, LIPID, LIVER, BMP #### [facility] [address] [place] [address] Dr. Mariano Mistry BILI, CONJUGATED 0.1 mg/dL Normal 0.0-0.2 [facility] [place] [facility] Comment on above: Performed By: #### T SH, LIPID, LIVER, BMP #### [facility] [address] [address] [address] Mariano Mistry Bilirubin [Mass/Vol] 0.3 mg/dL Normal 0.2-1.0 [facility] Comment on above: Performed By: #### T SH, LIPID, LIVER, BMP #### [facility] [address] [place] [address] Dr. Mariano Mistry Globulin (S) [Mass/Vol] 4.0 g/dL Normal [facility] Comment on above: Performed By: #### T SH, LIPID, LIVER, BMP #### [facility] [address] [place] [address] Dr. Mariano Mistry Protein [Mass/Vol] 7.7 g/dL Normal 6.4-8.2 [facility] Comment on above: Performed By: #### T SH, LIPID, LIVER, BMP #### [facility] [address] [place] [address] Dr. Mariano Mistry PROF CHEM 8 (BAS METB)on Anion gap [Moles/Vol] 12.5 mmol/L Normal [facility] Comment on above: Performed By: #### T SH, LIPID, LIVER, BMP #### [facility] [address] [place] [address] Dr. Mariano Mistry Calcium [Mass/Vol] 9.0 mg/dL Normal 8.5-10.1 [facility] Comment on above: Performed By: #### T SH, LIPID, LIVER, BMP #### [facility] [address] [place] [address] Dr. Mariano Mistry Chloride [Moles/Vol] 105 mmol/L Normal 98-107 [facility] Comment on above: Performed By: #### T SH, LIPID, LIVER, BMP #### [facility] [address] [place] [address] Dr. Mariano Mistry CO2 [Moles/Vol] 26.8 mmol/L Normal 21.0-32.0 [facility] [place] [facility] Comment on above: Performed By: #### T SIRI, LIPID, LIVER, BMP #### [facility] [address] [address] [address] Mariano Mistry Creatinine [Mass/Vol] 0.48 mg/dL Critically low 0.55-1.02 [facility] Comment on above: Performed By: #### T SIRI, LIPID, LIVER, BMP #### [facility] [address] [address] [address] Mariano Mistry EGFR-AF [place]AZ[place]H >60 Normal >=60 [facility] [place] [facility] Comment on above: Performed By: #### T SIRI, LIPID, LIVER, BMP #### [facility] [address] [address] [address] Mariano Mistry EGFR-NON AF KAZAKH >60 Normal >=60 [facility] Comment on above: Performed By: #### T SIRI, LIPID, LIVER, BMP #### [facility] [address] [address] [address] Mariano Mistry Glucose [Mass/Vol] 106 mg/dL Normal 74-106 [facility] Comment on above: Performed By: #### T SIRI, LIPID, LIVER, BMP #### [facility] [address] [address] [address] Mariano Mistry Potassium [Moles/Vol] 4.3 mmol/L Normal 3.5-5.1 [facility] Comment on above: Performed By: #### T SH, LIPID, LIVER, BMP #### [facility] [address] [address] [address] Mariano Mistry Sodium [Moles/Vol] 140 mmol/L Normal 136-145 [facility] Comment on above: Performed By: #### T SH, LIPID, LIVER, BMP #### [facility] [address] [address] [address] Mariano Mistry Urea nitrogen [Mass/Vol] 24.0 mg/dL Critically high 7.0-18.0 [facility] Comment on above: Performed By: #### T SH, LIPID, LIVER, BMP #### [facility] [address] [place], [place] [address] Dr. Mariano Mistry Urea nitrogen/Creatinine [Mass ratio] 50.0 mg/mg Normal [facility] Comment on above: Performed By: #### T SH, LIPID, LIVER, BMP #### [facility] [address] [place], [place] [address] Dr. Mariano Mistry TSHon 03-03-2022 TSH 2.321 uIU/mL Normal 0.358-3.740 [facility] Comment on above: Performed By: #### T SH, LIPID, LIVER, BMP #### [facility] [address] [place] [address] Dr. Mariano Mistry TSH RANGE SEE BELOW Normal [facility] Comment on above: Result Comment: <0.3 4 UIU/ml HYPERTHYROID 0.34-5.60 UIU/ml EUTHYROID >5.60 UIU/ml HYPOTHYROID Performed By: #### T SH, LIPID, LIVER, BMP #### [facility] [address] [place] [address] Dr. Mariano Mistry VITAMIN D 25 OHon 03-03-2022 VIT D 25-OH 17.9 ng/mL Normal [facility] Comment on above: Performed By: #### V ITAD #### [facility] [address] [place] [address] Dr. Mariano Mistry VIT D RANGES SEE BELOW Normal [facility] Comment on above: Result Comment: <20 ng/mL Vit D deficient 20 - <30 ng/mL Vit D insufficient 30 - 100 ng/mL Vit D sufficient >100 ng/mL Potential Toxicity Performed By: #### V ITAD #### [facility] [address] [place] [address] Dr. 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 She has good [...] both L a (more content not included)... [facility] Summary Purpose Family History No Family [...] section and content) DATE CREATED AUTHOR 03/24/2018 [facility] DATE CREATED AUTHOR AUTHOR'S ORGANIZ ATION 05/02/2022 [facility] dical Specialist DATE CREATED AUTHOR AUTHOR'S ORGANIZ ATION 05/14/2022 [facility] DATE CREATED AUTHOR AUTHOR'S ORGANIZ ATION 07/25/2022 [facility] DATE CREATED AUTHOR AUTHOR'S ORGANIZ ATION 02/05/2024 [facility] dical Specialists EPIC DATE CREATED AUTHOR AUTHOR'S ORGANIZ ATION 03/02/2024 [facility] FOR RECORDS PERTAINING TO PATIENTS WHO ARE [...] BE BASED ON THE PRIMARY CLINICAL RECORDS. [employer] provides no warranty or guarantee of the accuracy or completeness of information in this document.
--- NOTE | 2024-03-09 08:00 | VEIN_ITS ---
Patient Name: ALLYSSA ELENA MR#: [id number] : 1965 Exam Date: 03/09/2024 Ordering Doctor: DR DIETER CLAUDIO M.D. RADIOLOGY REPORT PROCEDURE: FACILITY EST [facility] - OFFICE VISIT FOLLOW UP COMPARISON: None. PROGRESS NOTES: The patient reports improvement in leg symptoms. There has been interval reduction in varicosities. The patient has followed our recommendations to walk 20-30 minutes once or twice per day since the procedure. Physical exam demonstrates decrease in varicosities of the leg. Persistent varicosities are identified along the right leg. Review of the ultrasound performed the same day demonstrates occlusive thrombus extending throughout the treated vein(s), see separate report, consistent with a successful ablation. No thrombus extending into or beyond the saphenofemoral junction. The patient expressed a desire to proceed with treatment of remaining varicosities, particular common spider veins. The patient was informed that treatment was a process and would require several procedures/sessions. VEIN/ Facility EST TD IMPRESSION: 1. Successful ablation of the right small saphenous vein(s). 2. Persistent varicose veins, reticular veins, spider veins , but improving right lower extremity symptoms. PLAN: 1. Sclerotherapy. 2. Microfoam chemical ablation of incompetent branch saphenous varicosities would be beneficial if this could be approved. Nurse notes, history and physical were reviewed and confirmed, see attached forms. The nurse was present throughout the physical exam and consultation Dictated by: Lio Levin M.D. on 03/09/2024 at 09:53 Approved by: Lio Levin M.D. on 03/09/2024 at 09:54
--- NOTE | 2024-03-09 08:00 | VEIN_ITS ---
Patient Name: ALLYSSA ELENA MR#: [id number] : 1965 Exam Date: 03/09/2024 Ordering Doctor: DR DIETER CLAUDIO M.D. RADIOLOGY REPORT PROCEDURE: VC EXT VENOUS RT LMTD COMPARISON: None. INDICATIONS: I80.01 Phlebitis of superficial veins of right lower extremity TECHNIQUE: Lower extremity li scale and Duplex Doppler evaluation of the deep venous system from the inguinal ligament through the calf veins. FINDINGS: REGION: Left lower extremity. THROMBI: Negative for DVT. Heat induced thrombus in right SSV approximately 2.9 cm from SPJ ans extends to distal lower leg. COMPRESSIBILITY: Non-compressible segments corresponding to thrombus FLOW: Areas of no flow corresponding to thrombus OTHER: Incompetent varicose vein mid/medial lower leg measures 5.1 mm with 0.9s reflux. Varicose vein distal medial thigh measures 4.6 mm with 0.8s reflux. CONCLUSION: 1. Successful post ablation occlusion of right small saphenous vein. Dictated by: Lio Levin M.D. on 03/09/2024 at 09:48 Approved by: Lio Levin M.D. on 03/09/2024 at 09:53
== END 2024-03-09 07:55 | disposition home or self-care (01) ==
LOC: VC 07:54
PROVIDERS: PCP Radiology Diagnostic Radiology; Visit Provider Radiology Diagnostic Radiology
DX: I80.01 Phlebitis and thrombophlebitis of superficial vessels of right lower extremity (principal)
CPT/HCPCS: 93971; G0463

== ENCOUNTER 2024-03-23 07:47 | Outpatient (OUT) | payer OTHER, SELFPAY ==
--- NOTE | 2024-03-23 07:49 | VEIN_ITS ---
[address] [address] Patient Name: ALLYSSA ELENA MRN: [id number] date: 1965 Sex: F Assigned Patient Location: Current Patient Location: Accession/Order Number: [id number] Exam Date: 03/23/2024 07:54 Report Date: 03/23/2024 09:55 At the request of: DIETER CLAUDIO Procedure: VC INJ Sclerosing SOLMULT Vein EXAMINATION: VC INJ Sclerosing SOLMULT Vein HISTORY: I83.813 Bilateral leg panful varicose veins COMPARISON: No relevant comparison available. TECHNIQUE: The risks and benefits of the procedure were explained at length to the patient and informed written consent was obtained. Mariano Ma was present and assisted. The procedure was performed under sterile technique. The patient's leg was wrapped with Coban and postprocedural verbal and written instructions provided. SCLEROSANT: 4 cc, 0.5% polidocanol VEIN(S) INJECTED: 29 veins in the right leg VISUALIZATION: Ultrasound was not used to visualize the sclerosant ANESTHESIA: Supercooled air COMPLICATIONS: None VEIN/VC INJ Sclerosing SOLMULT Vein IMPRESSION: Technically successful sclerotherapy as described Electronically authenticated by: DIETER CLAUDIO Date: 03/23/2024 09:55
--- OUTSIDE RECORDS SUMMARY | 2024-03-23 07:50 | XMS_ITS ---
Patient Summarization (C-CDA 2.1 CCD) Created on: March 23, 2024 ALLYSSA VALENZUELA : 1965 Sex: Female Author Organization Sample organization Care Team Providers Care Patent Drafter Name Role Phone Solomon Walters Unavailable Unavailable PocSolomon carroll Unavailable Unavailable PocSolomon carroll Unavailable Unavailable GISELLE LEWIS~[phone] UNKNOWN Unavailable Unavailable SALMA, CELENA R Admitting [...] source) chlorhexidine; Translations: [chlorhexidine topical] Drug Allergy [facility] Repository (2 sources) nickel; Translations: [Nickel] Drug Allergy [facility] Repository (1 source) No Known Medication Allergies; Translations: [No Known Medication Allergies] Propensity to adverse reactions (disorder) [facility] Repository (1 source) PROPOXYPHENE N-ACETAMINOPHEN; Translations: [PROPOXYPHENE N-ACETAMINOPHEN] Propensity to adverse reactions to drug (disorder) 7 [facility] Repository Encounters Encounter Date Encounter Type Care Provider Facility Start: 02-03-2024 End: 02-03-2024 ambulatory LAVELL RIVER Not Available Start: 01-23-2024 End: 01-24-2024 ambulatory LAVELL RIVER Not Available Start: 01-16-2024 End: 01-17-2024 ambulatory ABHISHEK RAMOS Not Available Start: 01-04-2024 End: 01-04-2024 ambulatory LAVELL RIVER Not Available Start: 09-14-2023 End: 09-14-2023 ambulatory LAVELL RIVER Not Available Start: 06-16-2023 End: 06-17-[address] [facility] Start: 07-20-2022 End: 07-21-[address] LAVELL RIVER Facility:[facility] Start: 05-12-2022 End: 05-13-2022 ambulatory CELENA MARSH Facility:[facility] Start: 03-12-2022 End: 03-13-[address] DOCTOR FREIRE Facility:[facility] Start: 03-10-2022 Encounter for genera l adult medical examination without abnormal findings DR LAVELL RIVER [facility] Start: 03-03-2022 End: 03-04-[address] LAVELL RIVER Facility:[facility] Start: 03-03-2022 End: 03-04-2022 Encounter for general adult medical examination without abnormal findings DR LAVELL RIVER Facility:[facility] Start: 11-16-2016 End: 11-18-2016 Evaluation and management of inpatient Solomon Walters [place] [place] P[place] Date Payer Category Payer Private Health Insurance [id number] 1965 Unknown [id number] [id number] [id number] 1965 Unknown [id number] 2.16.84 [id number] 1965 Unknown [id number] 2.16.84 [id number] 1965 Unknown [id number] 2.16.84 [id number] 1965 Unknown [id number] 2.16.84 [id number] 1965 Unknown [id number] 2.16.84 [id number] 1965 Unknown [id number] 2.16.84 [id number] 1965 Unknown [id number] 2.16.84 [id number] 1965 Unknown [id number] 1959 Private Health Insurance [id number] Problems Problem Classification Problem Date Documented Da [...] Please give patient a call once sent [facility] 36 RX SENT TO PHARMACY //[facility] BI MAMMOGRAM SCREENING TOMOS YNTHESIS BILATERALon 01-23-2024 [...] IS VERY IMPORTANT TO YOUR HEALTH. THE [place] [employer] GUIDELINES RECOMMEND THAT WOMEN 40 [...] Not Available Orders Onlyon 06-17-2023 Orders Only [id number] Allyssa Valenzuela 1965 [facility] Provider Department Center 06/17/2023 CELENA ORTEGA [facility] Family History Family history unknown: Yes Normal [facility] Follow-Upon 06-16-2023 Follow-Up [id number] Allyssa Valenzuela 1965 [facility] Provider Department [place] 06/16/2023 CELENA ORTEGA ORTH[facility] Family History Family history unknown: Yes Level of Service:28116 IN OFFICE/OUTPATIENT ESTABLISHED LOW MDM 20-29 MIN Reason for Visit and Comments: Follow-up [816389] Pain [136] Normal [facility] HEMOGLOBINon 07-20-2022 Hemoglobin (Bld) [Mass/Vol] 13.5 g/dL Normal 12.0-16.[address] [facility] Comment on above: Performed By: #### H GB #### [facility] [address] [place] [address] Dr. Mariano Mistry NM 3 PHASE BONE SCANon 05-12 NM [address] [facility] Department of Radiology [address] [place] [address] ===== Patient Name: ALLYSSA VALENZUELA : 1965 Sex: F Age: Race: Other Pt. Location: 84 Patient Status: D Ordered Date: 04/19/2022 7:15:00 AM Completed Date: 05/12/2022 02:58 PM Requesting Provider: CELENA MARSH Attending Provider: CELENA MARSH Report Copy To: Signs & Symptoms: Z96.659 Presence of unspecified artificial knee joint I10 History: Maria Guadalupe, PHONE:[phone],*NEE DS ORTHO F/U APPT. Comments: Evaluate Exam: [...] excluded Electronically signed: Kelsey Lockett. Transcribed by: [email or web address], User Resident: Electronically Signed by: KELSEY LOCKETT @ 05/13/2022 03:[address] [facility] Comment on above: Order Comment: Evalu [...] by Jean Blanton on 04/29/2022 0947 Normal [facility] [employer] CRPon 03-12-2022 CRP 1.9 mg/dL Critically high <=1.0 [facility] Comment on above: Performed By: #### C RP #### [facility] [address] [place] [address] Dr. Mariano Mistry [facility] SED [facility] 32 mm/hr Critically high <=30 [facility] Comment on above: Performed By: #### S EDR #### [facility] [address] [place] [address] Dr. Mariano Mistry KNEE LEFT 4VWSon 03-11-[address] [facility] Department of Radiology [address] [place] [id number] ===== Patient Name: ALLYSSA VALENZUELA : 1965 Sex: F Age: Race: Other Pt. Location: Patient Status: D Ordered Date: 03/11/2022 10:10:00 AM Completed Date: 03/11/2022 10:13 AM Requesting Provider: JOAQUINA MASON Attending Provider: JOAQUINA MASON Report Copy To: SELF, REFERRED Signs & Symptoms: M25.561 Pain in right knee I10 History: Maria Guadalupe Comments: Exam: KNEE LEFT 4VWS ===== KNEE [...] fall. Electronically signed: TIFFANIE ORTEGA. Transcribed by: [email or web address], User Resident: Electronically Signed by: TIFFANIE ORTEGA @ 03/14/2022 11:[address] [facility] KNEE RIGHT 4 [facility] 2 KNEE RIGHT 4 [facility] Department of Radiology [address] [place] [phone] ===== Patient Name: ALLYSSA VALENZUELA : 1965 Sex: F Age: Race: Other Pt. Location: 84 Patient Status: D Ordered Date: 03/11/2022 10:10:00 AM Completed Date: 03/11/2022 10:13 AM Requesting Provider: JOAQUINA MASON Attending Provider: JOAQUINA MASON Report Copy To: SELF, REFERRED Signs & Symptoms: M25.561 Pain in right knee I10 History: [place] Comments: Exam: KNEE RIGHT 4 VWS ===== [...] report. Electronically signed: Guerita Patel. Transcribed by: [email or web address], User Resident: HAY LIZAMA Electronically Signed by: GUERITA PATEL @ 03/12/2022 10:16 AM I personally read this/these film(s) with this resident Normal [facility] CBC AUTO DIFFon 03-03-2022 BASO # 0.0 103/ul Normal 0.0-0.[address] [facility] Comment on above: Performed By: #### C BC #### [facility] [address] [address] [address] Mariano Mistry Basophils/100 WBC (Bld) 0.4 % Normal 0.2-2.0 [facility] Comment on above: Performed By: #### C BC #### [facility] [address] [place] [address] Dr. Mariano Mistry EO # 0.2 103/ul Normal 0.0-0.7 [facility] Comment on above: Performed By: #### C BC #### [facility] [address] [place] [address] Dr. Mariano Mistry Eosinophils/100 WBC (Bld) 2.4 % Normal 0.9-7.0 [facility] Comment on above: Performed By: #### C BC #### [facility] [address] [place] [address] Dr. Mariano Mistry Erythrocyte distribution width (RBC) [Ratio] 14.4 % Normal 11.0-15.0 [facility] Comment on above: Performed By: #### C BC #### [facility] [address] [place] [address] Dr. Mariano Mistry Hematocrit (Bld) [Volume fraction] 38.0 % Normal 36.0-48.0 [facility] Comment on above: Performed By: #### C BC #### [facility] [address] [place] [address] Dr. Mariano Mistry Hemoglobin (Bld) [Mass/Vol] 12.1 g/dL Normal 12.0-16.0 [facility] Comment on above: Performed By: #### C BC #### [facility] [address] [place] [address] Dr. Mariano Mistry IG # 0.02 10e3/ul Normal 0.00-0.03 [facility] Comment on above: Performed By: #### C BC #### [facility] [address] [place] [address] Dr. Mariano Mistry IG % 0.3 % Normal 0.0-0.[address] [facility] Comment on above: Performed By: #### C BC #### [facility] [address] [place] [address] Dr. Mariano Mistry LYMPH # 2.3 103/ul Normal 1.2-3.[address] [facility] Comment on above: Performed By: #### C BC #### [facility] [address] [place] [address] Dr. Mariano Mistry Lymphocytes/100 WBC (Bld) 32.6 % Normal 20.5-60.0 [facility] Comment on above: Performed By: #### C BC #### [facility] [address] [place] [address] Dr. Mariano Mistry MANUAL DIFF REQ NO Normal [facility] Comment on above: Performed By: #### C BC #### [facility] [address] [place] [address] Dr. Mariano Mistry MCH (RBC) [Entitic mass] 28.1 pg Normal 26.7-34.0 [facility] Comment on above: Performed By: #### C BC #### [facility] [address] [place] [address] Dr. Mariano Mistry MCHC (RBC) [Mass/Vol] 31.8 g/dL Normal 29.9-35.2 [facility] Comment on above: Performed By: #### C BC #### [facility] [address] [place] [address] Dr. Mariano Mistry MCV (RBC) [Entitic vol] 88.4 fL Normal 81.0-99.0 [facility] Comment on above: Performed By: #### C BC #### [facility] [address] [place] [address] Dr. Mariano Mistry MONO # 0.4 103/ul Normal 0.3-0.[address] [facility] Comment on above: Performed By: #### C BC #### [facility] [address] [place] [address] Dr. Mariano Mistry Monocytes/100 WBC (Bld) 6.1 % Normal 1.7-12.[address] [facility] Comment on above: Performed By: #### C BC #### [facility] [address] [place] [address] Dr. Mariano Mistry NEUT # 4.1 103/ul Normal 1.4-6.[address] [facility] Comment on above: Performed By: #### C BC #### [facility] [address] [place] [address] Dr. Mariano Mistry Neutrophils/100 WBC (Bld) 58.2 % Normal 43.0-75.0 [facility] Comment on above: Performed By: #### C BC #### [facility] [address] [place] [address] Dr. Mariano Mistry Platelet mean volume (Bld) [Entitic vol] 10.7 fL Normal 9.5-13.5 [facility] Comment on above: Performed By: #### C BC #### [facility] [address] [place] [address] Dr. Mariano Mistry PLT 255 103/ul Normal 150-450 [facility] Comment on above: Performed By: #### C BC #### [facility] [address] [place] [address] Dr. Mariano Mistry RBC 4.30 106/ul Normal 4.20-5.40 [facility] Comment on above: Performed By: #### C BC #### [facility] [address] [place] [address] Dr. Mariano Mistry WBC 7.1 103/ul Normal 4.0-11.0 [facility] Comment on above: Performed By: #### C BC #### [facility] [address] [place] [address] Dr. Mariano Mistry GLYCOHEMOGLOBIN A1Con 2021 ADA RECOMMENDATION SEE BELOW Normal [facility] Comment on above: Result Comment: ADA RECOMMENDED LIMIT 4.0 - 6.0 ADA THERAPEUTIC TARGET < 7.0 ACTION SUGGESTED > 7.0 Performed By: #### A 1C #### [facility] [address] [place] [address] Dr. Mariano Mistry Glucose [Mass/Vol] 123 mg/dL Normal [facility] Comment on above: Performed By: #### A 1C #### [facility] [address] [place] [address] Dr. Mariano Mistry HbA1c (Bld) [Mass fraction] 5.9 % Normal 4.5-6.2 [facility] Comment on above: Performed By: #### A 1C #### [facility] [address] [address] [address] Mariano Mistry LIPID PROFILEon 03-03-2022 CHOL-HDL RATIO NORM SEE BELOW Normal [facility] Comment on above: Result Comment: 3.3 - 4.4 LOW RISK 4.4 - 7.1 AVERAGE RISK 7.1 - 11.0 MODERATE RISK >11.0 HIGH RISK Performed By: #### T SH, LIPID, LIVER, BMP #### [facility] [address] [address] [address] Mariano Mistry Cholesterol [Mass/Vol] 194 mg/dL Normal <=200 [facility] Comment on above: Performed By: #### T SH, LIPID, LIVER, BMP #### [facility] [address] [address] [address] Mariano Mistry Cholesterol in HDL [Mass/Vol] 85 mg/dL Critically high 40-60 [facility] Comment on above: Performed By: #### T SH, LIPID, LIVER, BMP #### [facility] [address] [address] [address] Mariano Mistry Cholesterol in LDL [Mass/Vol] 93.8 mg/dL Normal [facility] Comment on above: Performed By: #### T SH, LIPID, LIVER, BMP #### [facility] [address] [address] [address] Mariano Mistry Cholesterol.total/C holesterol in HDL [Mass ratio] 2.3 {ratio} Normal [facility] Comment on above: Performed By: #### T SH, LIPID, LIVER, BMP #### [facility] [address] [address] [address] Mariano Mistry HDL NORMAL > or = 60 mg/dl - LO W CARDIOVASCULAR RISK <40 mg/dl - HIGH CARDIOVASCULAR RISK Normal [facility] Comment on above: Performed By: #### T SH, LIPID, LIVER, BMP #### [facility] [address] [address] [address] Mariano Mistry LDL CALC NORMAL SEE BELOW Normal [facility] Comment on above: Result Comment: <100 mg/dl OPTIMAL 100 - 129 mg/dl NEAR OR ABOVE OPTIMAL 130 - 159 mg/dl BORDERLINE HIGH 160 - 189 mg/dl HIGH >190 mg/dl VERY HIGH Performed By: #### T SIRI, LIPID, LIVER, BMP #### [facility] [address] [address] [address] Mariano Mistry Triglyceride [Mass/Vol] 76 mg/dL Normal <=150 [facility] Comment on above: Performed By: #### T SH, LIPID, LIVER, BMP #### [facility] [address] [address] [address] Mariano Mistry VLDL CALC 15.2 mg/dL Normal [facility] Comment on above: Performed By: #### T SIRI, LIPID, LIVER, BMP #### [facility] [address] [place] [address] Dr. Mariano Mistry LIVER PROFILEon 03-03-2022 Albumin [Mass/Vol] 3.7 g/dL Normal 3.4-5.0 [facility] Comment on above: Performed By: #### T SIRI, LIPID, LIVER, BMP #### [facility] [address] [place] [address] Dr. Mariano Mistry Albumin/Globulin [Mass ratio] 0.9 {ratio} Normal [facility] Comment on above: Performed By: #### T SIRI, LIPID, LIVER, BMP #### [facility] [address] [place] [address] Dr. Mariano Mistry ALP [Catalytic activity/Vol] 109 U/L Normal 46-116 [facility] Comment on above: Performed By: #### T SIRI, LIPID, LIVER, BMP #### [facility] [address] [place] [address] Dr. Mariano Mistry ALT [Catalytic activity/Vol] 44 U/L Normal 14-59 [facility] Comment on above: Performed By: #### T SH, LIPID, LIVER, BMP #### [facility] [address] [place] [address] Dr. Mariano Mistry AST [Catalytic activity/Vol] 30 U/L Normal 15-37 [facility] Comment on above: Performed By: #### T SH, LIPID, LIVER, BMP #### [facility] [address] [place] [address] Dr. Mariano Mistry BILI, CONJUGATED 0.1 mg/dL Normal 0.0-0.2 [facility] Comment on above: Performed By: #### T SH, LIPID, LIVER, BMP #### [facility] [address] [address] [address] Mariano Mistry Bilirubin [Mass/Vol] 0.3 mg/dL Normal 0.2-1.[address] [facility] Comment on above: Performed By: #### T SH, LIPID, LIVER, BMP #### [facility] [address] [place] [address] Dr. Mariano Mistry Globulin (S) [Mass/Vol] 4.0 g/dL Normal [facility] Comment on above: Performed By: #### T SH, LIPID, LIVER, BMP #### [facility] [address] [place] [address] Dr. Mariano Mistry Protein [Mass/Vol] 7.7 g/dL Normal 6.4-8.2 [facility] Comment on above: Performed By: #### T SH, LIPID, LIVER, BMP #### [facility] [address] [place] [address] Dr. Mariano Mistry PROF CHEM 8 (BAS METB)on Anion gap [Moles/Vol] 12.5 mmol/L Normal [facility] Comment on above: Performed By: #### T SH, LIPID, LIVER, BMP #### [facility] [address] [place] [address] Dr. Mariano Mistry Calcium [Mass/Vol] 9.0 mg/dL Normal 8.5-10.1 [facility] Comment on above: Performed By: #### T SH, LIPID, LIVER, BMP #### [facility] [address] [place] [address] Dr. Mariano Mistry Chloride [Moles/Vol] 105 mmol/L Normal 98-107 [facility] Comment on above: Performed By: #### T SH, LIPID, LIVER, BMP #### [facility] [address] [place] [address] Dr. Mariano Mistry CO2 [Moles/Vol] 26.8 mmol/L Normal 21.0-32.0 [facility] Comment on above: Performed By: #### T SIRI, LIPID, LIVER, BMP #### [facility] [address] [address] [address] Mariano Mistry Creatinine [Mass/Vol] 0.48 mg/dL Critically low 0.55-1.02 [facility] Comment on above: Performed By: #### T SIRI, LIPID, LIVER, BMP #### [facility] [address] [address] [address] Mariano Mistry EGFR-AF SUDANESE >60 Normal >=60 [facility] Comment on above: Performed By: #### T SIRI, LIPID, LIVER, BMP #### [facility] [address] [address] [address] Mariano Mistry EGFR-NON AF SUDANESE >60 Normal >=[address] [facility] Comment on above: Performed By: #### T SIRI, LIPID, LIVER, BMP #### [facility] [address] [address] [address] Mariano Mistry Glucose [Mass/Vol] 106 mg/dL Normal 74-106 [facility] Comment on above: Performed By: #### T SIRI, LIPID, LIVER, BMP #### [facility] [address] [address] [address] Mariano Mistry Potassium [Moles/Vol] 4.3 mmol/L Normal 3.5-5.[address] [facility] Comment on above: Performed By: #### T SIRI, LIPID, LIVER, BMP #### [facility] [address] [address] [address] Mariano Mistry Sodium [Moles/Vol] 140 mmol/L Normal 136-145 [facility] Comment on above: Performed By: #### T SIRI, LIPID, LIVER, BMP #### [facility] [address] [address] [address] Mariano Mistry Urea nitrogen [Mass/Vol] 24.0 mg/dL Critically high 7.0-18.[address] [facility] Comment on above: Performed By: #### T SH, LIPID, LIVER, BMP #### [facility] [address] [address] [address] Mariano Mistry Urea nitrogen/Creatinine [Mass ratio] 50.0 mg/mg Normal [facility] Comment on above: Performed By: #### T SH, LIPID, LIVER, BMP #### [facility] [address] [place] [address] Dr. Mariano Misrty TSHon 03-03-2022 TSH 2.321 uIU/mL Normal 0.358-3.740 [facility] Comment on above: Performed By: #### T SH, LIPID, LIVER, BMP #### [facility] [address] [place] [address] Dr. Mariano Mistry TSH RANGE SEE BELOW Normal [facility] Comment on above: Result Comment: <0.3 4 UIU/ml HYPERTHYROID 0.34-5.60 UIU/ml EUTHYROID >5.60 UIU/ml HYPOTHYROID Performed By: #### T SH, LIPID, LIVER, BMP #### [facility] [address] [place] [address] Dr. Mariano Mistry VITAMIN D 25 OHon 03-03-2022 VIT D 25-OH 17.9 ng/mL Normal [facility] Comment on above: Performed By: #### V ITAD #### [facility] [address] [place] [address] Dr. Mariano Mistry VIT D RANGES SEE BELOW Normal [facility] Comment on above: Result Comment: <20 ng/mL Vit D deficient 20 - <30 ng/mL Vit D insufficient 30 - 100 ng/mL Vit D sufficient >100 ng/mL Potential Toxicity Performed By: #### V ITAD #### [facility] [address] [place] [address] Dr. 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 She has good [...] both L a (more content not included)... [facility] Summary Purpose Family History No Family [...] section and content) DATE CREATED AUTHOR 03/24/2018 [facility] DATE CREATED AUTHOR AUTHOR'S ORGANIZ ATION 05/02/2022 [facility] Special[facility] DATE CREATED AUTHOR AUTHOR'S ORGANIZ ATION 05/14/2022 [facility] DATE CREATED AUTHOR AUTHOR'S ORGANIZ ATION 07/25/2022 [facility] pital DATE CREATED AUTHOR AUTHOR'S ORGANIZ ATION 02/05/2024 [facility] Specialists EPIC DATE CREATED AUTHOR AUTHOR'S ORGANIZ ATION 03/02/2024 [facility] FOR RECORDS PERTAINING TO PATIENTS WHO [...] BE BASED ON THE PRIMARY CLINICAL RECORDS. [employer] provides no warranty or guarantee of the accuracy or completeness of information in this document.
== END 2024-03-23 07:48 | disposition home or self-care (01) ==
LOC: VC 07:47
PROVIDERS: PCP Radiology Diagnostic Radiology; Visit Provider Radiology Diagnostic Radiology
DX: I83.813 Varicose veins of bilateral lower extremities with pain (principal)
CPT/HCPCS: 36471

== ENCOUNTER 2024-04-20 07:58 | Outpatient (OUT) | payer OTHER, SELFPAY ==
--- NOTE | 2024-04-18 09:43 | VEINCLINIC_ITS ---
Vital Signs 04/18/24 10:03 Height 5 ft 2 in Weight 129.274 kg BMI 52.1 BP 134/72 BP Location Left Brachial BP Position Sitting BP Cuff Size Adult BP Source Manual Cuff Respiration 18 Pulse 68 Pulse Source Monitor Pulse Oximetry (%) 98 Oxygen Delivery Method Room Air Comment The patient's blood pressure is elevated. Varicose Veins Patient in this day for sclerotherapy Lio Warner MD personally performed the services described in this documentation, as scribed by Mariano Ma RN in my presence and it is both accurate and complete. IMariano RN, am scribing for, and in the presence of, Dr. Lio Levin and in the presence of the patient. calf: bilateral aching, cramping and tender 3 30 years standing analgesics, elevating extremities, compression stockings and exercise Reports muscle spasms of leg, heaviness, edema and leg edema Superficial thrombophlebitis: Yes Family history of varicose veins: yes Has patient had previous lower extremity venous surgery: Yes (vein stripping) Patient has previously received the following treatment(s) for lower extremity varicose veins: Reports other (vein stripping) Does patient have a history of : yes Does patient intend to have future pregnancies: no Has patient had lower extremity venous scan with relux testing: Yes Support hose used: Yes Problems walking or doing physical activity: Yes How does it affect you: impedes work performance due to pain Do you walk much: Yes Do you stand much: Yes Large amounts of Vitamin K: No Review of Systems ROS Narrative Lio Warner MD personally performed the services described in this documentation, as scribed by Mariano Ma RN in my presence and it is both accurate and complete. Mariano Warner RN, am scribing for, and in the presence of, Dr. Lio Levin and in the presence of the patient. Patient states much improvement noted to bilateral legs in pain and edema. Cardiovascular Reports: edema Integumentary/Breast Reports: itching, skin swelling, non-healing lesion and changes in skin color Neurological Reports: weakness in extremities [facility] Medical History (Updated 04/18/24 @ 10:05 by Mariano Ma) Pain due to varicose veins of both lower extremities ?I83.813 - Varicose veins of bilateral lower extremities with pain (ICD-10) Varicose vein of leg ?I83.90 - Asymptomatic varicose veins of unspecified lower extremity (ICD-10) Elevated blood pressure reading ?R03.0 - Elevated blood-pressure reading, without diagnosis of hypertension (ICD-10) Constipation ?K59.00 - Constipation, unspecified (ICD-10) Osteoarthritis ?M19.90 - Unspecified osteoarthritis, unspecified site (ICD-10) Back pain ?M54.9 - Dorsalgia, unspecified (ICD-10) Extremity edema ?R60.0 - Localized edema (ICD-10) Prediabetes ?R73.03 - Prediabetes (ICD-10) Obesity ?E66.9 - Obesity, unspecified (ICD-10) Knee arthropathy ?M17.10 - Unilateral primary osteoarthritis, unspecified knee (ICD-10) Knee pain, bilateral ?M25.561 - Pain in right knee (ICD-10) ?M25.562 - Pain in left knee (ICD-10) Vitamin D deficiency ?E55.9 - Vitamin D deficiency, unspecified (ICD-10) Bronchitis ?J40 - Bronchitis, not specified as acute or chronic (ICD-10) Surgical History (Updated 01/24/24 @ 13:29 by Caroline Rievra NP) H/O abdominal surgery ?Z98.890 - Other specified postprocedural states (ICD-10) History of hysterectomy ?Z90.710 - Acquired absence of both cervix and uterus (ICD-10) History of section ?Z98.891 - History of uterine scar from previous surgery (ICD-10) Family History (Updated 01/24/24 @ 13:17 by Caroline Rivera NP) Other Family history of throat cancer Social History (Updated 01/31/24 @ 08:08 by Monica Knight) Within the past year, how often did you have a drink containing alcohol: monthly or less Smoking status: Never smoker Non-prescribed substance use: denies use 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 [employer] Highest level of school completed/degree received: some college, no degree Meds Home Medications and Allergies Home Medications ?Medication ?Instructions ?Recorded ?Confirmed ?Type albuterol sulfate 90 mcg/actuation 2 inh inhalation Q4H PRN shortness 03/13/23 01/24/24 Rx aerosol inhaler of breath or wheezing #8.5 grams cholecalciferol (vitamin D3) 50 2,000 unit PO BID 03/13/23 01/24/24 History mcg (2,000 unit) tablet (Vitamin D3) cyclobenzaprine 10 mg tablet 10 mg PO Q8H 01/24/24 01/24/24 History furosemide 40 mg tablet 40 mg PO DAILY 01/24/24 01/24/24 History meloxicam 15 mg tablet 15 mg PO DAILY 01/24/24 01/24/24 History oxycodone-acetaminophen 5 mg-325 1 tab PO Q6H PRN pain 01/24/24 01/24/24 History mg tablet spironolactone 50 mg tablet 50 mg PO DAILY 01/24/24 01/24/24 History (Aldactone) Allergies Allergy/AdvReac Type Severity Reaction Status Date / Time nickel Allergy Verified 01/24/24 13:01 propoxyphene Allergy Verified 01/24/24 12:58 Exam Narrative Exam Narrative: Lio Warner MD personally performed the services described in this documentation, as scribed by Mariano Ma RN in my presence and it is both accurate and complete. Mariano Warner RN, am scribing for, and in the presence of, Dr. Lio Levin and in the presence of the patient. Constitutional Documenting provider has reviewed patient's vital signs: yes Common normals: oriented x3 Nutritional appearance: overweight Cardio Peripheral pulses: dorsalis pedis pulses present Extremity Common normals: normal capillary refill General: edema Right lower extremity: lower leg Right lower leg: inspection and palpation Left lower extremity: lower leg Left lower leg: inspection and palpation Neuro Common normals: oriented x3 Assessment and Plan Assessment and Plan (1) Varicose vein of leg: Plan sclerotherapy: Risks and benefits of the procedure were discussed at length and informed written consent was obtained.? Time-out procedure was performed and the correct patient and procedure were confirmed.? Staff present during time-out: Mariano Ma RN and Lio Levin MD.? Patient prepped and procedure performed in usual sterile fashion. Injections performed by Dr. Levin and Mariano Ma RN Sclerosing Agent:?? 4cc 0.5% Polidocanol Site Injected: left leg Number of Injections: 24 Anesthesia: Supercooled air The patient tolerated the procedure well without complication.? Hemostasis was obtained and thigh-high compression stocking was applied by patient.? Instructed patient to wear stocking for at least 96 hours and sleep with it and only remove for showering.? Will wear stocking for 2 weeks.? The patient verbalizes understanding and states they will comply.? Patient was given post-procedure instructions. Patient was discharged in good condition.? Patient to call and schedule to additional injection sclerotherapy as necessary. Once patient's insurance accepts microfoam chemical ablation, plan is to move forward with microfoam chemical ablation bilateral leg branch saphenous varicosities. ILio MD personally performed the services described in this documentation, as scribed by Mariano Ma RN in my presence and it is both accurate and complete. I, Mariano Ma RN, am scribing for, and in the presence of, Dr. Lio Levin and in the presence of the patient.
--- NOTE | 2024-04-18 10:02 | W.VEIN ---
Discharge Plan Discharge Disposition: Home, Self-Care Outpatient Diagnostics: VC INJ Sclerosing SOLMULT Vein (Routine) Timeframe: 2 Weeks Facility: [facility] - Location[facility] Ordered By: Solomon Quinones Follow Up Appointments: Patient to call for further sclerotherapy appointment if necessary. Once patient's insurance accepts microfoam chemical ablation, move forward with treating bilateral leg branch saphenous varicosities Patient Instructions: Polidocanol (By injection) (Jeremiah Dooleythemily) Print Language: Spanish Discharge Date/Time: 04/20/24 08:44
[2024-04-18 10:03] VITALS: BP 134/72; PULSE 68; O2SAT 98; BMI 52.1
--- NOTE | 2024-04-20 08:01 | VEIN_ITS ---
[address] [address] Patient Name: ALLYSSA ELENA MRN: [id number] date: 1965 Sex: F Assigned Patient Location: Current Patient Location: Accession/Order Number: [id number] Exam Date: 04/20/2024 08:02 Report Date: 04/20/2024 10:28 At the request of: DIETER CLAUDIO Procedure: VC INJ Sclerosing SOLMULT Vein EXAMINATION: VC INJ Sclerosing SOLMULT Vein HISTORY: I83.813 Bilateral leg painful varicose veins The risks and benefits of the procedure were explained at length to the patient and informed written consent was obtained. The procedure was performed under sterile technique. The patient's leg was wrapped with Coban and postprocedural verbal and written instructions provided. Mariano Ma RN was present and assisted. SCLEROSANT: 2mL 0.5% Polidocanol. VEIN(S) INJECTED: 24 veins in the left leg. VISUALIZATION: Ultrasound was not used to visualize the sclerosant. ANESTHESIA: Supercooled air. COMPLICATIONS: None. Electronically authenticated by: TAMARA FITZGERALD Date: 04/20/2024 10:28
--- OUTSIDE RECORDS SUMMARY | 2024-04-20 08:01 | XMS_ITS ---
Patient Summarization (C-CDA 2.1 CCD) Created on: April 20, 2024 ALLYSSA VALENZUELA : 1965 Sex: Female Author Organization Sample organization Care Team Providers Care N[employer] Machine Name Role Phone Solomon Walters Unavailable Unavailable PocSolomon carroll Unavailable Unavailable PocSolomon carroll Unavailable Unavailable GISELLE LEWIS~[phone] UNKNOWN Unavailable Unavailable SALMA, CELENA R Admitting [...] source) chlorhexidine; Translations: [chlorhexidine topical] Drug Allergy [facility] Rep[facility] (2 sources) nickel; Translations: [Nickel] Drug Allergy [facility] (1 source) No Known Medication Allergies; Translations: [No Known Medication Allergies] Propensity to adverse reactions (disorder) [facility] (1 source) PROPOXYPHENE N-ACETAMINOPHEN; Translations: [PROPOXYPHENE N-ACETAMINOPHEN] Propensity to adverse reactions to drug (disorder) 7 [facility] Repository Encounters Encounter Date Encounter Type Care Provider Facility Start: 02-03-2024 End: 02-03-2024 ambulatory LAVELL RIVER Not Available Start: 01-23-2024 End: 01-24-2024 ambulatory LAVELL RIVER Not Available Start: 01-16-2024 End: 01-17-2024 ambulatory ABHISHEK RAMOS Not Available Start: 01-04-2024 End: 01-04-2024 ambulatory LAVELL RIVER Not Available Start: 09-14-2023 End: 09-14-2023 ambulatory LAVELL RIVER Not Available Start: 06-16-2023 End: 06-17-2023 ambulatory CELENA MARSH [facility] Start: 07-20-2022 End: 07-21-[address] LAVELL RIVER Facility:[facility] Start: 05-12-2022 End: 05-13-2022 ambulatory CELENA MARSH Facility:[facility] Start: 03-12-2022 End: 03-13-[address] DOCTOR FREIRE Facility:[facility] Start: 03-10-2022 Encounter for genera l adult medical examination without abnormal findings DR LAVELL RIVER [facility] Start: 03-03-2022 End: 03-04-[address] LAVELL RIVER Facility:[facility] Start: 03-03-2022 End: 03-04-2022 Encounter for general adult medical examination without abnormal findings DR LAVELL RIVER Facility:[facility] Start: 11-16-2016 End: 11-18-2016 Evaluation and management of inpatient Solomon Walters [place] [place] Date Payer Category Payer Private Health Insurance [id number] 1965 Unknown [id number] 2.16.8 [id number] 1965 Unknown [id number] 2.16.84 [id number] 1965 Unknown [id number] 2.16.84 [id number] 1965 Unknown [id number] 2.16.84 [id number] 1965 Unknown [id number] 2.16.84 [id number] 1965 Unknown [id number] 2.16.84 [id number] 1965 Unknown [id number] 2.16.84 [id number] 1965 Unknown [id number] 2.16.84 [id number] 1965 Unknown [id number] [id number] 1959 Private Health Insurance [id number] Problems Problem Classification Problem Date Documented Da [...] Please give patient a call once sent [facility] 36 RX SENT TO PHARMACY //[facility] BI MAMMOGRAM SCREENING TOMOS YNTHESIS BILATERALon [...] IS VERY IMPORTANT TO YOUR HEALTH. THE STATELESS CANCER SOCIETY GUIDELINES RECOMMEND THAT WOMEN 40 [...] Not Available Orders Onlyon 06-17-2023 Orders Only [id number] Allyssa Valenzuela 1965 [facility] Provider Department Center 06/17/2023 CELENA ORTEGA [facility] [place] [place] [facility] [place] [facility] Family History Family history unknown: Yes Normal [facility] Follow-Upon 06-16-2023 Follow-Up [id number] Allyssa Valenzuela 1965 [facility] Provider Department [place] 06/16/2023 CELENA ORTEGA [facility]TH[facility] Family History Family history unknown: Yes Level of Service:57214 PA OFFICE/OUTPATIENT ESTABLISHED LOW MDM 20-29 MIN Reason for Visit and Comments: Follow-up [476542] Pain [136] Normal [facility] HEMOGLOBINon 07-20-2022 Hemoglobin (Bld) [Mass/Vol] 13.5 g/dL Normal 12.0-16.0 [facility] Comment on above: Performed By: #### H GB #### [facility] [address] [place] [address] Dr. Mariano Mistry NM 3 PHASE BONE SCANon 05-12 NM 3 PHASE BONE SCAN [facility] Department of Radiology [address] [place] [address] ===== Patient Name: ALLYSSA VALENZUELA : 1965 Sex: F Age: Race: Other Pt. Location: 84 Patient Status: D Ordered Date: 04/19/2022 7:15:00 AM Completed Date: 05/12/2022 02:58 PM Requesting Provider: CELENA MARSH Attending Provider: CELENA MARSH Report Copy To: Signs & Symptoms: Z96.659 Presence of unspecified artificial knee joint I10 History: Maria Guadalupe, PHONE:[phone],*NEE DS ORTHO F/U APPT. Comments: Evaluate Exam: [...] excluded Electronically signed: Kelsey Lockett. Transcribed by: [email or web address], User Resident: Electronically Signed by: KELSEY LOCKETT @ 05/13/2022 03:56 PM Normal [facility] Comment on above: Order Comment: Evalu [...] by Jean Blanton on 04/29/2022 0947 Normal [facility] Field Account Director CRPon 03-12-2022 CRP 1.9 mg/dL Critically high <=1.0 [facility] Comment on above: Performed By: #### C RP #### [facility] [address] [place] [address] Dr. Mariano Mistry [facility] 32 mm/hr Critically high <=30 [facility] Comment on above: Performed By: #### S EDR #### [facility] [address] [place] [address] Dr. Mariano Mistry KNEE LEFT 4VWSon 03-11-2022 KNEE LEFT 4VWS [facility] Department of Radiology [address] [place] [id number] ===== Patient Name: ALLYSSA VALENZUELA : [...] fall. Electronically signed: TIFFANIE ORTEGA. Transcribed by: [email or web address], User Resident: Electronically Signed by: TIFFANIE ORTEGA @ 03/14/2022 11:12 AM Normal [facility] KNEE RIGHT 4 [facility] 2 KNEE RIGHT 4 [facility] Department of Radiology [address] [place] [id number] ===== Patient Name: ALLYSSA VALENZUELA : 1965 Sex: F Age: Race: Other Pt. Location: 84 Patient Status: D Ordered Date: 03/11/2022 10:10:00 AM Completed Date: 03/11/2022 10:13 AM Requesting Provider: JOAQUINA MASON Attending Provider: JOAQUINA MAOSN Report Copy To: SELF, REFERRED Signs & Symptoms: M25.561 Pain in right knee I10 History: [place] Comments: Exam: KNEE RIGHT 4 VWS ===== [...] report. Electronically signed: Guerita Patel. Transcribed by: [email or web address], User Resident: HAY LIZAMA Electronically Signed by: GUERITA PATEL @ 03/12/2022 10:16 AM I personally read this/these film(s) with this resident Normal [facility] CBC AUTO DIFFon 03-03-2022 BASO # 0.0 103/ul Normal 0.0-0.1 [facility] Comment on above: Performed By: #### C BC #### [facility] [address] [address] [address] Mariano Mistry Basophils/100 WBC (Bld) 0.4 % Normal 0.2-2.0 [facility] Comment on above: Performed By: #### C BC #### [facility] [address] [place] [address] Dr. Mariano Mistry EO # 0.2 103/ul Normal 0.0-0.7 [facility] Comment on above: Performed By: #### C BC #### [facility] [address] [place] [address] Dr. Mariano Mistry Eosinophils/100 WBC (Bld) 2.4 % Normal 0.9-7.0 [facility] Comment on above: Performed By: #### C BC #### [facility] [address] [place] [address] Dr. Mariano Mistry Erythrocyte distribution width (RBC) [Ratio] 14.4 % Normal 11.0-15.0 [facility] Comment on above: Performed By: #### C BC #### [facility] [address] [place] [address] Dr. Mariano Mistry Hematocrit (Bld) [Volume fraction] 38.0 % Normal 36.0-48.0 [facility] Comment on above: Performed By: #### C BC #### [facility] [address] [place] [address] Dr. Mariano Mistry Hemoglobin (Bld) [Mass/Vol] 12.1 g/dL Normal 12.0-16.0 [facility] Comment on above: Performed By: #### C BC #### [facility] [address] [place] [address] Dr. Mariano Mistry IG # 0.02 10e3/ul Normal 0.00-0.03 [facility] Comment on above: Performed By: #### C BC #### [facility] [address] [place] [address] Dr. Mariano Mistry IG % 0.3 % Normal 0.0-0.5 [facility] Comment on above: Performed By: #### C BC #### [facility] [address] [place] [address] Dr. Mariano Mistry LYMPH # 2.3 103/ul Normal 1.2-3.8 [facility] Comment on above: Performed By: #### C BC #### [facility] [address] [place] [address] Dr. Mariano Mistry Lymphocytes/100 WBC (Bld) 32.6 % Normal 20.5-60.0 [facility] Comment on above: Performed By: #### C BC #### [facility] [address] [place] [address] Dr. Mariano Mistry MANUAL DIFF REQ NO Normal [facility] Comment on above: Performed By: #### C BC #### [facility] [address] [place] [address] Dr. Mariano Mistry MCH (RBC) [Entitic mass] 28.1 pg Normal 26.7-34.0 [facility] Comment on above: Performed By: #### C BC #### [facility] [address] [place] [address] Dr. Mariano Mistry MCHC (RBC) [Mass/Vol] 31.8 g/dL Normal 29.9-35.2 [facility] Comment on above: Performed By: #### C BC #### [facility] [address] [place] [address] Dr. Mariano Mistry MCV (RBC) [Entitic vol] 88.4 fL Normal 81.0-99.0 [facility] Comment on above: Performed By: #### C BC #### [facility] [address] [place] [address] Dr. Mariano Mistry MONO # 0.4 103/ul Normal 0.3-0.8 [facility] Comment on above: Performed By: #### C BC #### [facility] [address] [place] [address] Dr. Mariano Mistry Monocytes/100 WBC (Bld) 6.1 % Normal 1.7-12.0 [facility] Comment on above: Performed By: #### C BC #### [facility] [address] [place] [address] Dr. Mariano Mistry NEUT # 4.1 103/ul Normal 1.4-6.5 [facility] Comment on above: Performed By: #### C BC #### [facility] [address] [place] [address] Dr. Mariano Mistry Neutrophils/100 WBC (Bld) 58.2 % Normal 43.0-75.0 [facility] Comment on above: Performed By: #### C BC #### [facility] [address] [place] [address] Dr. Mariano Mistry Platelet mean volume (Bld) [Entitic vol] 10.7 fL Normal 9.5-13.5 [facility] Comment on above: Performed By: #### C BC #### [facility] [address] [place] [address] Dr. Mariano Mistry PLT 255 103/ul Normal 150-450 [facility] Comment on above: Performed By: #### C BC #### [facility] [address] [place] [address] Dr. Mariano Mistry RBC 4.30 106/ul Normal 4.20-5.40 [facility] Comment on above: Performed By: #### C BC #### [facility] [address] [place] [address] Dr. Mariano Mistry WBC 7.1 103/ul Normal 4.0-11.0 [facility] Comment on above: Performed By: #### C BC #### [facility] [address] [place] [address] Dr. Mariano Mistry GLYCOHEMOGLOBIN A1Con 2021 ADA RECOMMENDATION SEE BELOW Normal [facility] Comment on above: Result Comment: ADA RECOMMENDED LIMIT 4.0 - 6.0 ADA THERAPEUTIC TARGET < 7.0 ACTION SUGGESTED > 7.0 Performed By: #### A 1C #### [facility] [address] [place] [address] Dr. Mariano Mistry Glucose [Mass/Vol] 123 mg/dL Normal [facility] Comment on above: Performed By: #### A 1C #### [facility] [address] [place] [address] Dr. Mariano Mistry HbA1c (Bld) [Mass fraction] 5.9 % Normal 4.5-6.2 [facility] Comment on above: Performed By: #### A 1C #### [facility] [address] [address] [address] Mariano Mistry LIPID PROFILEon 03-03-2022 CHOL-HDL RATIO NORM SEE BELOW Normal [facility] Comment on above: Result Comment: 3.3 - 4.4 LOW RISK 4.4 - 7.1 AVERAGE RISK 7.1 - 11.0 MODERATE RISK >11.0 HIGH RISK Performed By: #### T SH, LIPID, LIVER, BMP #### [facility] [address] [address] [address] Mariano Mistry Cholesterol [Mass/Vol] 194 mg/dL Normal <=200 [facility] Comment on above: Performed By: #### T SH, LIPID, LIVER, BMP #### [facility] [address] [address] [address] Mariano Mistry Cholesterol in HDL [Mass/Vol] 85 mg/dL Critically high 40-60 [facility] Comment on above: Performed By: #### T SH, LIPID, LIVER, BMP #### [facility] [address] [address] [address] Mariano Mistry Cholesterol in LDL [Mass/Vol] 93.8 mg/dL Normal [facility] Comment on above: Performed By: #### T SH, LIPID, LIVER, BMP #### [facility] [address] [address] [address] Mariano Mistry Cholesterol.total/C holesterol in HDL [Mass ratio] 2.3 {ratio} Normal [facility] Comment on above: Performed By: #### T SH, LIPID, LIVER, BMP #### [facility] [address] [address] [address] Mariano Mistry HDL NORMAL > or = 60 mg/dl - LO W CARDIOVASCULAR RISK <40 mg/dl - HIGH CARDIOVASCULAR RISK Normal [facility] Comment on above: Performed By: #### T SH, LIPID, LIVER, BMP #### [facility] [address] [address] [address] Mariano Mistry LDL CALC NORMAL SEE BELOW Normal [facility] Comment on above: Result Comment: <100 mg/dl OPTIMAL 100 - 129 mg/dl NEAR OR ABOVE OPTIMAL 130 - 159 mg/dl BORDERLINE HIGH 160 - 189 mg/dl HIGH >190 mg/dl VERY HIGH Performed By: #### T SIRI, LIPID, LIVER, BMP #### [facility] [address] [address] [address] Mariano Mistry Triglyceride [Mass/Vol] 76 mg/dL Normal <=150 [facility] Comment on above: Performed By: #### T SH, LIPID, LIVER, BMP #### [facility] [address] [address] [address] Mariano Mistry VLDL CALC 15.2 mg/dL Normal [facility] Comment on above: Performed By: #### T SIRI, LIPID, LIVER, BMP #### [facility] [address] [place] [address] Dr. Mariano Mistry LIVER PROFILEon 03-03-2022 Albumin [Mass/Vol] 3.7 g/dL Normal 3.4-5.0 [facility] Comment on above: Performed By: #### T SIRI, LIPID, LIVER, BMP #### [facility] [address] [place] [address] Dr. Mariano Mistry Albumin/Globulin [Mass ratio] 0.9 {ratio} Normal [facility] Comment on above: Performed By: #### T SIRI, LIPID, LIVER, BMP #### [facility] [address] [place] [address] Dr. Mariano Mistry ALP [Catalytic activity/Vol] 109 U/L Normal 46-116 [facility] Comment on above: Performed By: #### T SIRI, LIPID, LIVER, BMP #### [facility] [address] [place] [address] Dr. Mariano Mistry ALT [Catalytic activity/Vol] 44 U/L Normal 14-59 [facility] Comment on above: Performed By: #### T SH, LIPID, LIVER, BMP #### [facility] [address] [place] [address] Dr. Mariano Mistry AST [Catalytic activity/Vol] 30 U/L Normal 15-37 [facility] Comment on above: Performed By: #### T SH, LIPID, LIVER, BMP #### [facility] [address] [place] [address] Dr. Mariano Mistry BILI, CONJUGATED 0.1 mg/dL Normal 0.0-0.2 [facility] Comment on above: Performed By: #### T SH, LIPID, LIVER, BMP #### [facility] [address] [address] [address] Mariano Mistry Bilirubin [Mass/Vol] 0.3 mg/dL Normal 0.2-1.0 [facility] Comment on above: Performed By: #### T SH, LIPID, LIVER, BMP #### [facility] [address] [place] [address] Dr. Mariano Mistry Globulin (S) [Mass/Vol] 4.0 g/dL Normal [facility] Comment on above: Performed By: #### T SH, LIPID, LIVER, BMP #### [facility] [address] [place] [address] Dr. Mariano Mistry Protein [Mass/Vol] 7.7 g/dL Normal 6.4-8.2 [facility] Comment on above: Performed By: #### T SH, LIPID, LIVER, BMP #### [facility] [address] [place] [address] Dr. Mariano Mistry PROF CHEM 8 (BAS METB)on Anion gap [Moles/Vol] 12.5 mmol/L Normal [facility] Comment on above: Performed By: #### T SH, LIPID, LIVER, BMP #### [facility] [address] [place] [address] Dr. Mariano Mistry Calcium [Mass/Vol] 9.0 mg/dL Normal 8.5-10.1 [facility] Comment on above: Performed By: #### T SH, LIPID, LIVER, BMP #### [facility] [address] [place] [address] Dr. Mariano Mistry Chloride [Moles/Vol] 105 mmol/L Normal 98-107 [facility] Comment on above: Performed By: #### T SH, LIPID, LIVER, BMP #### [facility] [address] [place] [address] Dr. Mariano Mistry CO2 [Moles/Vol] 26.8 mmol/L Normal 21.0-32.0 [facility] Comment on above: Performed By: #### T SIRI, LIPID, LIVER, BMP #### [facility] [address] [address] [address] Mariano Mistry Creatinine [Mass/Vol] 0.48 mg/dL Critically low 0.55-1.02 [facility] Comment on above: Performed By: #### T SIRI, LIPID, LIVER, BMP #### [facility] [address] [address] [address] Mariano Mistry EGFR-AF STATELESS >60 Normal >=60 [facility] Comment on above: Performed By: #### T SIRI, LIPID, LIVER, BMP #### [facility] [address] [address] [address] Mariano Mistry EGFR-NON AF STATELESS >60 Normal >=60 [facility] Comment on above: Performed By: #### T SIRI, LIPID, LIVER, BMP #### [facility] [address] [address] [address] Mariano Mistry Glucose [Mass/Vol] 106 mg/dL Normal 74-106 [facility] Comment on above: Performed By: #### T SIRI, LIPID, LIVER, BMP #### [facility] [address] [address] [address] Mariano Mistry Potassium [Moles/Vol] 4.3 mmol/L Normal 3.5-5.1 [facility] Comment on above: Performed By: #### T SIRI, LIPID, LIVER, BMP #### [facility] [address] [address] [address] Mariano Mistry Sodium [Moles/Vol] 140 mmol/L Normal 136-145 [facility] Comment on above: Performed By: #### T SIRI, LIPID, LIVER, BMP #### [facility] [address] [address] [address] Mariano Mistry Urea nitrogen [Mass/Vol] 24.0 mg/dL Critically high 7.0-18.0 [facility] Comment on above: Performed By: #### T SH, LIPID, LIVER, BMP #### [facility] [address] [address] [address] Mariano Mistry Urea nitrogen/Creatinine [Mass ratio] 50.0 mg/mg Normal [facility] Comment on above: Performed By: #### T SH, LIPID, LIVER, BMP #### [facility] [address] [place] [address] Dr. Mariano Mistry TSHon 03-03-2022 TSH 2.321 uIU/mL Normal 0.358-3.740 [facility] Comment on above: Performed By: #### T SH, LIPID, LIVER, BMP #### [facility] [address] [place] [address] Dr. Mariano Mistry TSH RANGE SEE BELOW Normal [facility] Comment on above: Result Comment: <0.3 4 UIU/ml HYPERTHYROID 0.34-5.60 UIU/ml EUTHYROID >5.60 UIU/ml HYPOTHYROID Performed By: #### T SH, LIPID, LIVER, BMP #### [facility] [address] [place] [address] Dr. Mariano Mistry VITAMIN D 25 OHon 03-03-2022 VIT D 25-OH 17.9 ng/mL Normal [facility] Comment on above: Performed By: #### V ITAD #### [facility] [address] [place] [address] Dr. Mariano Mistry VIT D RANGES SEE BELOW Normal [facility] Comment on above: Result Comment: <20 ng/mL Vit D deficient 20 - <30 ng/mL Vit D insufficient 30 - 100 ng/mL Vit D sufficient >100 ng/mL Potential Toxicity Performed By: #### V ITAD #### [facility] [address] [place] [address] Dr. 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 She has good [...] both L a (more content not included)... [facility] Summary Purpose Family History No Family [...] section and content) DATE CREATED AUTHOR 03/24/2018 [facility] DATE CREATED AUTHOR AUTHOR'S ORGANIZ ATION 05/02/2022 [facility] dical Specialist DATE CREATED AUTHOR AUTHOR'S ORGANIZ ATION 05/14/2022 [facility] DATE CREATED AUTHOR AUTHOR'S ORGANIZ ATION 07/25/2022 [facility] pital DATE CREATED AUTHOR AUTHOR'S ORGANIZ ATION 02/05/2024 [facility] dical Specialists EPIC DATE CREATED AUTHOR AUTHOR'S ORGANIZ ATION 03/02/2024 [facility] FOR RECORDS PERTAINING TO PATIENTS WHO [...] BE BASED ON THE PRIMARY CLINICAL RECORDS. [employer] provides no warranty or guarantee of the accuracy or completeness of information in this document.
== END 2024-04-20 08:44 | disposition home or self-care (01) ==
PROVIDERS: PCP Radiology Diagnostic Radiology; Visit Provider Radiology Diagnostic Radiology
DX: I83.813 Varicose veins of bilateral lower extremities with pain (principal)
CPT/HCPCS: 36471

== ENCOUNTER 2024-05-22 16:14 | Observation (INO) | payer OTHER, SELFPAY ==
[2024-05-22] VITALS (27 sets, daily range): BP systolic 90–137; BP diastolic 46–77; PULSE 98–106; TEMP 36.6–36.8; O2SAT 91–99; BMI 56.9; BMI 56.4
--- NOTE | 2024-05-22 16:28 | ECG_ITS ---
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
--- NOTE | 2024-05-22 16:28 | XR_ITS ---
The [address] [address] Patient Name: ALLYSSA ELENA MRN: [id number] date: 1965 Sex: F Assigned Patient Location: ER Current Patient Location: ER Accession/Order Number: [id number] Exam Date: 05/22/2024 16:48 Report Date: 05/22/2024 17:34 At the request of: ROSEANN AGUILAR Procedure: XR chest 2V EXAM: XR chest 2V HISTORY: sob COMPARISON: 03/13/2023 TECHNIQUE: Upright PA and lateral chest x-ray FINDINGS: Slightly shallow inspiration. The heart is not enlarged and the vasculature is not distended. No acute infiltrate, effusion or pneumothorax is identified. Degenerative changes are seen in the spine. XR/XR chest 2V IMPRESSION: No acute infiltrate or evidence of cardiac decompensation. The overall appearance of the chest has not changed significantly. Electronically authenticated by: JOSEFINA FRENCH Date: 05/22/2024 17:34
[2024-05-22 16:48] LABS: Basophils Absolute Auto 0.1 10^3/uL (0.0-0.1); Basophils Percent Auto 0.6 % (0.2-2.0); Eosinophils Absolute Auto 0.2 10^3/uL (0.0-0.7); Eosinophils Percent Auto 2.2 % (0.9-7.0); Hematocrit 36.9 % (36.0-48.0); Hemoglobin 12.4 g/dL (12.0-16.0); Immature Granulocytes Abs Auto 0.04 10^3/uL (0.00-0.03); Immature Granulocytes Pct Auto 0.5 % (0.0-0.5); Lymphocytes Absolute Auto 2.2 10^3/uL (1.2-3.8); Lymphocytes Percent Auto 26.6 % (20.5-60.0); Mean Corpuscular HGB Conc 33.6 g/dL (29.9-35.2); Mean Corpuscular Hemoglobin 28.8 pg (26.7-34.0); Mean Corpuscular Volume 85.6 fL (81.0-99.0); Mean Platelet Volume 9.3 fL (9.5-13.5); Monocytes Absolute Auto 0.5 10^3/uL (0.3-0.8); Monocytes Percent Auto 6.4 % (1.7-12.0); Neutrophils Absolute Auto 5.3 10^3/uL (1.4-6.5); Neutrophils Percent Auto 63.7 % (43.0-75.0); Platelet Count 291 10^3/uL (150-450); Red Blood Count 4.31 10^6/uL (4.20-5.40); Red Cell Distribution Width 15.9 % (11.0-15.0); White Blood Count 8.3 10^3/uL (4.0-11.0)
[2024-05-22 17:10] LABS: Alanine Aminotransferase 45 U/L (14-59); Albumin Globulin Ratio 0.8; Albumin Level 3.2 g/dL (3.4-5.0); Alkaline Phosphatase 130 U/L (46-116); Anion Gap 11.8; Aspartate Amino Transferase 22 U/L (15-37); BUN Creatinine Ratio 19.3; Bilirubin Total 0.8 mg/dL (0.2-1.0); Calcium 9.3 mg/dL (8.5-10.1); Carbon Dioxide 31.2 mmol/L (21.0-32.0); Chloride 97 mmol/L (98-107); Estimated GFR (African America >60 (>=60); Estimated GFR (Non-African Ame >60 (>=60); Glucose 138 mg/dL (74-106); Sodium 136 mmol/L (136-145); Total Protein 7.2 g/dL (6.4-8.2); Troponin I High Sensitivity 7.3 pg/mL (4.0-51.3)
[2024-05-22 17:12] LABS: D Dimer 1.71 mg/L FEU (<=0.59)
--- NOTE | 2024-05-22 17:55 | ED.CHESTPAI1 ---
HPI - Chest Pain General Chief Complaint: Chest Pain Stated Complaint: Chest Pain Time Seen by Provider: 05/22/24 16:28 Source: patient Mode of arrival: walk-in History of Present Illness HPI narrative: 58-year-old female presents for chest pain. It is in the middle part of the chest and it does not seem to radiate and she has had it continuously for 3 days. She gets short of breath walking across the room. The pain does not radiate and she has had no fever or hemoptysis or productive cough. She was sent here by her PCPs office for evaluation. Related Data Home Medications ?Medication ?Instructions ?Recorded ?Confirmed cholecalciferol (vitamin D3) 50 2,000 unit PO BID 03/13/23 05/22/24 mcg (2,000 unit) tablet (Vitamin D3) cyclobenzaprine 10 mg tablet 10 mg PO Q8H 01/24/24 05/22/24 furosemide 40 mg tablet 40 mg PO DAILY 01/24/24 05/22/24 meloxicam 15 mg tablet 15 mg PO DAILY 01/24/24 05/22/24 oxycodone-acetaminophen 5 mg-325 1 tab PO Q6H PRN pain 01/24/24 05/22/24 mg tablet spironolactone 50 mg tablet 50 mg PO DAILY 01/24/24 05/22/24 (Aldactone) atorvastatin 40 mg tablet 40 mg PO DAILY 05/22/24 05/22/24 losartan 25 mg tablet 25 mg PO DAILY 05/22/24 05/22/24 semaglutide 0.25 mg or 0.5 mg (2 0.25 mg subcut DAILY 05/22/24 05/22/24 mg/3 mL) subcutaneous pen injector (Ozempic) Previous Rx's ?Medication ?Instructions ?Recorded albuterol sulfate 90 mcg/actuation 2 inh inhalation Q4H PRN shortness 03/13/23 aerosol inhaler of breath or wheezing #8.5 grams Allergies Allergy/AdvReac Type Severity Reaction Status Date / Time nickel Allergy Verified 01/24/24 13:01 propoxyphene Allergy Verified 01/24/24 12:58 Review of Systems ROS Narrative A ten point review of systems is negative except as noted above. [facility] Medical History (Updated 05/22/24 @ 18:56 by Jace Costa MD) Pain due to varicose veins of both lower extremities ?I83.813 - Varicose veins of bilateral lower extremities with pain (ICD-10) Varicose vein of leg ?I83.90 - Asymptomatic varicose veins of unspecified lower extremity (ICD-10) Elevated blood pressure reading ?R03.0 - Elevated blood-pressure reading, without diagnosis of hypertension (ICD-10) Constipation ?K59.00 - Constipation, unspecified (ICD-10) Osteoarthritis ?M19.90 - Unspecified osteoarthritis, unspecified site (ICD-10) Back pain ?M54.9 - Dorsalgia, unspecified (ICD-10) Extremity edema ?R60.0 - Localized edema (ICD-10) Prediabetes ?R73.03 - Prediabetes (ICD-10) Obesity ?E66.9 - Obesity, unspecified (ICD-10) Knee arthropathy ?M17.10 - Unilateral primary osteoarthritis, unspecified knee (ICD-10) Knee pain, bilateral ?M25.561 - Pain in right knee (ICD-10) ?M25.562 - Pain in left knee (ICD-10) Vitamin D deficiency ?E55.9 - Vitamin D deficiency, unspecified (ICD-10) Bronchitis ?J40 - Bronchitis, not specified as acute or chronic (ICD-10) Surgical History (Updated 01/24/24 @ 13:29 by Caroline Rivera NP) H/O abdominal surgery ?Z98.890 - Other specified postprocedural states (ICD-10) History of hysterectomy ?Z90.710 - Acquired absence of both cervix and uterus (ICD-10) History of section ?Z98.891 - History of uterine scar from previous surgery (ICD-10) Family History (Updated 01/24/24 @ 13:17 by Caroline Rivera NP) Other Family history of throat cancer Social History (Updated 01/31/24 @ 08:08 by Monica Knight) Within the past year, how often did you have a drink containing alcohol: monthly or less Smoking status: Never smoker Non-prescribed substance use: denies use 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 General: The patient appears in no apparent distress. Patient is resting comfortably on cart. Skin: Warm, dry, no pallor noted. There is no rash noted. Head: Normocephalic, atraumatic Eye: Normal conjunctiva, no drainage Ears, Nose, Mouth, and Throat: oral mucosa is moist. Nares patent. Cardiovascular: Regular Rate and Rhythm Respiratory: Patient is in no distress, no accessory muscle use, lungs are clear to auscultation, no wheezing, rales or rhonchi Back: non-tender GI: Soft obese and nontender Musculoskeletal: The patient has no evidence of calf tenderness, no pitting edema, symmetrical pulses noted bilaterally Neurological: A&O, normal speech Psychiatric: Cooperative Constitutional Vital Signs, click to edit/add: Last Vital Signs Temp 97.8 F 05/22/24 16:20 Pulse 103 H 05/22/24 18:40 Resp 19 05/22/24 18:40 BP 117/75 05/22/24 18:30 Pulse Ox 99 05/22/24 18:40 O2 Del Method Room Air 05/22/24 16:20 Course Vital Signs Vital signs: Vital Signs Temperature 97.8 F 05/22/24 16:20 Pulse Rate 106 H 05/22/24 16:20 Respiratory Rate 20 05/22/24 16:20 Blood Pressure 137/76 05/22/24 16:20 Pulse Oximetry 95 05/22/24 16:20 Oxygen Delivery Method Room Air 05/22/24 16:20 Temperature 97.8 F 05/22/24 16:20 Pulse Rate 103 H 05/22/24 18:40 Respiratory Rate 19 05/22/24 18:40 Blood Pressure 117/75 05/22/24 18:30 Pulse Oximetry 99 05/22/24 18:40 Oxygen Delivery Method Room Air 05/22/24 16:20 MDM - Chest Pain MDM Narrative Medical decision making narrative: Troponin is negative and CTA is negative as well. Her symptoms are concerning and she will be admitted for observation. Findings are discussed with the patient Differential Diagnosis Differential diagnosis: Likely pneumothorax, unstable angina pectoris, atypical chest pain, st elevation myocardial infarction, chest pain and other (Pulmonary embolism) Lab Data Attestation: I reviewed the patient's lab results. Labs: Lab Results 05/22/24 Range/Units 16:43 WBC 8.3 (4.0-11.0) 10^3/uL RBC 4.31 (4.20-5.40) 10^6/uL Hgb 12.4 (12.0-16.0) g/dL Hct 36.9 (36.0-48.0) % MCV 85.6 (81.0-99.0) fL MCH 28.8 (26.7-34.0) pg MCHC 33.6 (29.9-35.2) g/dL RDW 15.9 H (11.0-15.0) % Plt Count 291 (150-450) 10^3/uL MPV 9.3 L (9.5-13.5) fL Neut % (Auto) 63.7 (43.0-75.0) % Lymph % (Auto) 26.6 (20.5-60.0) % [place] % (Auto) 6.4 (1.7-12.0) % Eos % (Auto) 2.2 (0.9-7.0) % Baso % (Auto) 0.6 (0.2-2.0) % Neut # (Auto) 5.3 (1.4-6.5) 10^3/uL Lymph # (Auto) 2.2 (1.2-3.8) 10^3/uL [place] # (Auto) 0.5 (0.3-0.8) 10^3/uL Eos # (Auto) 0.2 (0.0-0.7) 10^3/uL Baso # (Auto) 0.1 (0.0-0.1) 10^3/uL Abs Immat Gran (auto) 0.04 H (0.00-0.03) 10^3/uL Imm/Tot Granulo (auto) 0.5 (0.0-0.5) % D-Dimer 1.71 H* (<=0.59) mg/L FEU Sodium 136 (136-145) mmol/L Potassium 4.0 (3.5-5.1) mmol/L Chloride 97 L (98-107) mmol/L Carbon Dioxide 31.2 (21.0-32.0) mmol/L Anion Gap 11.8 BUN 17.0 (7.0-18.0) mg/dL Creatinine 0.88 (0.55-1.02) mg/dL Est GFR ( Amer) >60 (>=60) Est GFR (Non-Af Amer) >60 (>=60) BUN/Creatinine Ratio 19.3 Glucose 138 H (74-106) mg/dL Calcium 9.3 (8.5-10.1) mg/dL Total Bilirubin 0.8 (0.2-1.0) mg/dL AST 22 (15-37) U/L ALT 45 (14-59) U/L Alkaline Phosphatase 130 H (46-116) U/L Troponin I High Sens 7.3 (4.0-51.3) pg/mL NT-Pro-B Natriuret Pep 13.0 (<=900.0) pg/mL Total Protein 7.2 (6.4-8.2) g/dL Albumin 3.2 L (3.4-5.0) g/dL Globulin 4.0 g/dL Albumin/Globulin Ratio 0.8 Imaging Data Chest x-ray: Radiologist's impression: ITS Impressions Chest X-Ray 05/22/24 16:28 IMPRESSION: No acute infiltrate or evidence of cardiac decompensation. The overall appearance of the chest has not changed significantly. Electronically authenticated by: JOSEFINA FRENCH Date: 05/22/2024 17:34 Chest CTA 05/22/24 18:07 IMPRESSION: No central or segmental pulmonary embolism or acute abnormalities in chest. Electronically authenticated by: BEL ELLISON Date: 05/22/2024 18:50 ECG Data Attestation: I personally reviewed and interpreted this ECG as follows: (EKG on my interpretation shows sinus rhythm with a rate of 103 and artifact.) Heart Score History: Highly Suspicious ECG: Normal Age: >45-<65 years Risk Factors: >3 Risk Factors/ HX of CAD:2 Troponin: <Normal Limit Total Heart Score Recommendations & Risks:: 5 Discharge Plan Discharge Chief Complaint: Chest Pain Clinical Impression: Chest pain Patient Disposition: Admitted as Observation Time of Disposition Decision: 18:56 Condition: Good
--- NOTE | 2024-05-22 18:07 | CT_ITS ---
The [address] [address] Patient Name: ALLYSSA ELENA MRN: [id number] date: 1965 Sex: F Assigned Patient Location: ER Current Patient Location: ED.MAIN Accession/Order Number: [id number] Exam Date: 05/22/2024 17:55 Report Date: 05/22/2024 18:50 At the request of: LELAND MERCADO Procedure: CT angio chest EXAM: CT pulmonary angiogram of the chest using 100 mL of IV iodinated contrast. 3-D imaging was performed. Dose reduction technique used: Automated exposure control and/or adjustment of the mA and/or kV according to patient size and/or use of iterative reconstruction technique. REASON FOR EXAM: Short of breath, chest pain, elevated D-dimer COMPARISON: CT scan dated 11/07/2011 FINDINGS: No central or segmental pulmonary emboli. Respiratory motion artifact prevents adequate evaluation of the subsegmental pulmonary artery branches. No aortic dissection. No pneumothorax. No acute airspace opacities. No pleural effusion. No acute fractures. No concerning pulmonary nodules. No definite lymphadenopathy in the chest. 1.5 x 1.3 cm left adrenal nodule, this was present in 2012 suggesting this is likely benign. Remainder unremarkable. CT/CT angio chest IMPRESSION: No central or segmental pulmonary embolism or acute abnormalities in chest. Electronically authenticated by: BEL ELLISON Date: 05/22/2024 18:50
--- OUTSIDE RECORDS SUMMARY | 2024-05-22 19:51 | XMS_ITS | CCD ---
Author Organization [facility] Care Team Providers Care Pocketbook Maker Name Role Phone Solomon Walters Unavailable Unavailable Solomon Walters Unavailable Unavailable PocSolomon carroll Unavailable Unavailable GISELLE LEWIS~[phone] UNKNOWN Unavailable Unavailable SALMACELENA R Admitting Unavailable SALMACELENA R Attending Unavailable SELF, REFERRED Primary Care [...] DR LAVELL Zamora Admitting Unavailable NADERER, DR LAEVLL Zamora Attending Unavailable NADERER, DR LAVELL Zamora Primary Care Unavailable NADERER, DR LAVELL Zamora Consulting Unavailable SALMA, CELENA Attending Unavailable SALMA, CELENA Referring Unavailable NADERER, LAVELL Attending Unavailable RACHEL, ABHISHEK Attending Unavailable NADERER, LAVELL Referring Unavailable NADERER, LAVELL Referring Unavailable NADERER, LAVELL Attending Unavailable NADERER, LAVELL Attending Unavailable NADERER, LAVELL Attending Unavailable Allergies Allergy Classification Reported Allergen(s) Allergy Type Date of Onset Reaction(s) Facility (1 source) chlorhexidine; Translations: [chlorhexidine topical] Drug Allergy [facility] Repository (2 sources) nickel; Translations: [Nickel] Drug Allergy 2 [facility] Repository (1 source) No Known Medication Allergies; Translations: [No Known Medication Allergies] Propensity to adverse reactions (disorder) [facility] Repository (1 source) PROPOXYPHENE N-ACETAMINOPHEN; Translations: [PROPOXYPHENE N-ACETAMINOPHEN] Propensity to adverse reactions to drug (disorder) 7 [facility] Repository Problems Problem Classification Problem Date [...] Interpretation Reference Range Facility 36on 03-01-2024 36 RX SENT TO PHARMACY //[facility] Normal [facility] 36 Patient requesting antibiotics for new dentist Ron joel Appt 03/14/24 Please give patient a call once sent Normal [facility] BI MAMMOGRAM SCREENING TOMOS YNTHESIS BILATERALon [...] IS VERY IMPORTANT TO YOUR HEALTH. THE [employer] GUIDELINES RECOMMEND THAT WOMEN 40 [...] Not Available Orders Onlyon 06-17-2023 Orders Only [id number] Allyssa Valenzuela 1965 F Date Provider Department Center 06/17/2023 CELENA ORTEGA [facility] Family History Family history unknown: Yes Normal [facility] Follow-Upon 06-16-2023 Follow-Up [id number] Allyssa Valenzuela 1965 F Date Provider Department Center 06/16/2023 CELENA ORTEGA [facility] Family History Family history unknown: Yes Level of Service:97555 [place] OFFICE/OUTPATIENT ESTABLISHED LOW MDM 20-29 MIN Reason for Visit and Comments: Follow-up [936543] Pain [136] Normal [facility] HEMOGLOBINon 07-20-2022 Hemoglobin (Bld) [Mass/Vol] 13.5 g/dL Normal 12.0-16.0 [facility] Comment on above: Performed By: #### H GB #### [facility] [address] [place] [address] Dr. Mariano Mistry NM 3 PHASE BONE SCANon 05-12 NM 3 PHASE BONE SCAN [facility] Department of Radiology [address] [place] [address] ===== Patient Name: ALLYSSA VALENZUELA : 1965 Sex: F Age: Race: Other Pt. Location: Patient Status: D Ordered Date: 04/19/2022 7:15:00 AM Completed Date: 05/12/2022 02:58 PM Requesting Provider: CELENA MARSH Attending Provider: CELENA MARSH Report Copy To: Signs & Symptoms: Z96.659 Presence of unspecified artificial knee joint I10 History: Maria Guadalupe, PHONE:[phone],*[facility] F/U APPT. Comments: Evaluate Exam: [...] excluded Electronically signed: Kelsey Lockett. Transcribed by: [email or web address], User Resident: Electronically Signed by: KELSEY LOCKETT @ 05/13/2022 03:56 PM Normal [facility] Comment on above: Order Comment: Evalu [...] by Jean Blanton on 04/29/2022 0947 Normal [facility] CRPon 03-12-2022 CRP 1.9 mg/dL Critically high <=1.0 [facility] Comment on above: Performed By: #### C RP #### [facility] [address] [address] [address] Mariano Mistry SED RATE WESTERGRENon 2021 SED RATE 32 mm/hr Critically high <=30 [facility] Comment on above: Performed By: #### S EDR #### [facility] [address] [address] [address] Mariano Mistry KNEE LEFT 4VWSon 03-11-2022 KNEE LEFT 4VWS [facility] Department of Radiology [address] [place] [id number] ===== Patient Name: ALLYSSA VALENZUELA : 1965 Sex: F Age: Race: Other Pt. Location: Patient Status: D Ordered Date: 03/11/2022 10:10:00 AM Completed Date: 03/11/2022 10:13 AM Requesting Provider: JOAQUINA MASON Attending Provider: JOAQUINA MASON Report Copy To: SELF, REFERRED Signs & Symptoms: M25.561 Pain in right knee I10 History: [place] Comments: Exam: KNEE LEFT 4VWS ===== KNEE [...] fall. Electronically signed: TIFFANIE ORTEGA. Transcribed by: [email or web address], User Resident: Electronically Signed by: TIFFANIE ORTEGA @ 03/14/2022 11:12 AM Normal [facility] KNEE RIGHT 4 [facility] 2 KNEE RIGHT 4 [facility] Department of Radiology [address] [place] [id number] ===== Patient Name: ALLYSSA VALENZUELA : 1965 Sex: F Age: Race: Other Pt. Location: 84 Patient Status: D Ordered Date: 03/11/2022 10:10:00 AM Completed Date: 03/11/2022 10:13 AM Requesting Provider: JOAQUINA MASON Attending Provider: JOAQUINA MASON Report Copy To: SELF, REFERRED Signs & Symptoms: M25.561 Pain in right knee I10 History: Maria Guadalupe Comments: Exam: KNEE RIGHT 4 [facility] ===== KNEE RIGHT 4 VWS 03/11/2022 10:20 [...] acute complications of surgical hardware. Approved by:Hay Stnaley03/12/2022 8:45 AM. I, Guerita Patel,have reviewed the image(s) and agree with the findings in this report. Electronically signed: Guerita Patel. Transcribed by: [email or web address], User Resident: HAY LIZAMA Electronically Signed by: GUERITA PATEL @ 03/12/2022 10:16 AM I personally read this/these film(s) with this resident Normal [facility] CBC AUTO DIFFon 03-03-2022 BASO # 0.0 103/ul Normal 0.0-0.1 [facility] Comment on above: Performed By: #### C BC #### [facility] [address] [place] [address] Dr. Mariano Mistry Basophils/100 WBC (Bld) 0.4 % Normal 0.2-2.0 [facility] Comment on above: Performed By: #### C BC #### [facility] [address] [address] [address] Mariano Mistry EO # 0.2 103/ul Normal 0.0-0.7 [facility] Comment on above: Performed By: #### C BC #### [facility] [address] [place] [address] Dr. Mariano Mistry Eosinophils/100 WBC (Bld) 2.4 % Normal 0.9-7.0 [facility] Comment on above: Performed By: #### C BC #### [facility] [address] [place] [address] Dr. Mariano Mistry Erythrocyte distribution width (RBC) [Ratio] 14.4 % Normal 11.0-15.0 [facility] Comment on above: Performed By: #### C BC #### [facility] [address] [place] [address] Dr. Mariano Mistry Hematocrit (Bld) [Volume fraction] 38.0 % Normal 36.0-48.0 [facility] Comment on above: Performed By: #### C BC #### [facility] [address] [place] [address] Dr. Mariano Mistry Hemoglobin (Bld) [Mass/Vol] 12.1 g/dL Normal 12.0-16.0 [facility] Comment on above: Performed By: #### C BC #### [facility] [address] [place] [address] Dr. Mariano Mistry IG # 0.02 10e3/ul Normal 0.00-0.03 [facility] Comment on above: Performed By: #### C BC #### [facility] [address] [place] [address] Dr. Mariano Mistry IG % 0.3 % Normal 0.0-0.5 [facility] Comment on above: Performed By: #### C BC #### [facility] [address] [place] [address] Dr. Mariano Mistry LYMPH # 2.3 103/ul Normal 1.2-3.8 [facility] Comment on above: Performed By: #### C BC #### [facility] [address] [place] [address] Dr. Mariano Mistry Lymphocytes/100 WBC (Bld) 32.6 % Normal 20.5-60.0 [facility] Comment on above: Performed By: #### C BC #### [facility] [address] [place] [address] Dr. Mariano Mistry MANUAL DIFF REQ NO Normal [facility] Comment on above: Performed By: #### C BC #### [facility] [address] [place] [address] Dr. Mariano Mistry MCH (RBC) [Entitic mass] 28.1 pg Normal 26.7-34.0 [facility] Comment on above: Performed By: #### C BC #### [facility] [address] [place] [address] Dr. Mariano Mistry MCHC (RBC) [Mass/Vol] 31.8 g/dL Normal 29.9-35.2 [facility] Comment on above: Performed By: #### C BC #### [facility] [address] [place] [address] Dr. Mariano Mistry MCV (RBC) [Entitic vol] 88.4 fL Normal 81.0-99.0 [facility] Comment on above: Performed By: #### C BC #### [facility] [address] [place] [address] Dr. Mariano Mistry MONO # 0.4 103/ul Normal 0.3-0.8 [facility] Comment on above: Performed By: #### C BC #### [facility] [address] [place] [address] Dr. Mariano Mistry Monocytes/100 WBC (Bld) 6.1 % Normal 1.7-12.0 [facility] Comment on above: Performed By: #### C BC #### [facility] [address] [place] [address] Dr. Mariano Mistry NEUT # 4.1 103/ul Normal 1.4-6.5 [facility] Comment on above: Performed By: #### C BC #### [facility] [address] [place] [address] Dr. Mariano Mistry Neutrophils/100 WBC (Bld) 58.2 % Normal 43.0-75.0 [facility] Comment on above: Performed By: #### C BC #### [facility] [address] [place] [address] Dr. Mariano Mistry Platelet mean volume (Bld) [Entitic vol] 10.7 fL Normal 9.5-13.5 [facility] Comment on above: Performed By: #### C BC #### [facility] [address] [address] [address] Mariano Mistry PLT 255 103/ul Normal 150-450 [facility] Comment on above: Performed By: #### C BC #### [facility] [address] [place] [address] Dr. Mariano Mistry RBC 4.30 106/ul Normal 4.20-5.40 [facility] Comment on above: Performed By: #### C BC #### [facility] [address] [place] [address] Dr. Mariano Mistry WBC 7.1 103/ul Normal 4.0-11.0 [facility] Comment on above: Performed By: #### C BC #### [facility] [address] [place] [address] Dr. Mariano Mistry GLYCOHEMOGLOBIN A1Con 2021 ADA RECOMMENDATION SEE BELOW Normal [facility] Comment on above: Result Comment: ADA RECOMMENDED LIMIT 4.0 - 6.0 ADA THERAPEUTIC TARGET < 7.0 ACTION SUGGESTED > 7.0 Performed By: #### A 1C #### [facility] [address] [place] [address] Dr. Mariano Mistry Glucose [Mass/Vol] 123 mg/dL Normal [facility] Comment on above: Performed By: #### A 1C #### [facility] [address] [place] [address] Dr. Mariano Mistry HbA1c (Bld) [Mass fraction] 5.9 % Normal 4.5-6.2 [facility] Comment on above: Performed By: #### A 1C #### [facility] [address] [place] [address] Dr. Mariano Mistry LIPID PROFILEon 03-03-2022 CHOL-HDL RATIO NORM SEE BELOW Normal [facility] Comment on above: Result Comment: 3.3 - 4.4 LOW RISK 4.4 - 7.1 AVERAGE RISK 7.1 - 11.0 MODERATE RISK >11.0 HIGH RISK Performed By: #### T SH, LIPID, LIVER, BMP #### [facility] [address] [place] [address] Dr. Mariano Mistry Cholesterol [Mass/Vol] 194 mg/dL Normal <=200 [facility] Comment on above: Performed By: #### T SH, LIPID, LIVER, BMP #### [facility] [address] [address] [address] Mariano Mistry Cholesterol in HDL [Mass/Vol] 85 mg/dL Critically high 40-60 [facility] Comment on above: Performed By: #### T SH, LIPID, LIVER, BMP #### [facility] [address] [address] [address] Mariano Mistry Cholesterol in LDL [Mass/Vol] 93.8 mg/dL Normal [facility] Comment on above: Performed By: #### T SH, LIPID, LIVER, BMP #### [facility] [address] [address] [address] Mariano Mistry Cholesterol.total/C holesterol in HDL [Mass ratio] 2.3 {ratio} Normal [facility] Comment on above: Performed By: #### T SH, LIPID, LIVER, BMP #### [facility] [address] [address] [address] Mariano Mistry HDL NORMAL > or = 60 mg/dl - LO W CARDIOVASCULAR RISK <40 mg/dl - HIGH CARDIOVASCULAR RISK Normal [facility] Comment on above: Performed By: #### T SH, LIPID, LIVER, BMP #### [facility] [address] [address] [address] Mariano Mistry LDL CALC NORMAL SEE BELOW Normal [facility] Comment on above: Result Comment: <100 mg/dl OPTIMAL 100 - 129 mg/dl NEAR OR ABOVE OPTIMAL 130 - 159 mg/dl BORDERLINE HIGH 160 - 189 mg/dl HIGH >190 mg/dl VERY HIGH Performed By: #### T SH, LIPID, LIVER, BMP #### [facility] [address] [address] [address] Mariano Mistry Triglyceride [Mass/Vol] 76 mg/dL Normal <=150 [facility] Comment on above: Performed By: #### T SH, LIPID, LIVER, BMP #### [facility] [address] [address] [address] Mariano Mistry VLDL CALC 15.2 mg/dL Normal [facility] Comment on above: Performed By: #### T SH, LIPID, LIVER, BMP #### [facility] [address] [address] [address] Mariano Mistry LIVER PROFILEon 03-03-2022 Albumin [Mass/Vol] 3.7 g/dL Normal 3.4-5.0 [facility] Comment on above: Performed By: #### T SH, LIPID, LIVER, BMP #### [facility] [address] [place] [address] Dr. Mariano Mistry Albumin/Globulin [Mass ratio] 0.9 {ratio} Normal [facility] Comment on above: Performed By: #### T SH, LIPID, LIVER, BMP #### [facility] [address] [place] [address] Dr. Mariano Mistry ALP [Catalytic activity/Vol] 109 U/L Normal 46-116 [facility] Comment on above: Performed By: #### T SH, LIPID, LIVER, BMP #### [facility] [address] [place] [address] Dr. Mariano Mistry ALT [Catalytic activity/Vol] 44 U/L Normal 14-59 [facility] Comment on above: Performed By: #### T SH, LIPID, LIVER, BMP #### [facility] [address] [place] [address] Dr. Mariano Mistry AST [Catalytic activity/Vol] 30 U/L Normal 15-37 [facility] Comment on above: Performed By: #### T SH, LIPID, LIVER, BMP #### [facility] [address] [place] [address] Dr. Mariano Mistry BILI, CONJUGATED 0.1 mg/dL Normal 0.0-0.2 [facility] Comment on above: Performed By: #### T SH, LIPID, LIVER, BMP #### [facility] [address] [place] [address] Dr. Mariano Mistry Bilirubin [Mass/Vol] 0.3 mg/dL Normal 0.2-1.0 [facility] Comment on above: Performed By: #### T SH, LIPID, LIVER, BMP #### [facility] [address] [address] [address] Mariano Mistry Globulin (S) [Mass/Vol] 4.0 g/dL Normal [facility] Comment on above: Performed By: #### T SH, LIPID, LIVER, BMP #### [facility] [address] [place] [address] Dr. Mariano Mistry Protein [Mass/Vol] 7.7 g/dL Normal 6.4-8.2 [facility] Comment on above: Performed By: #### T SH, LIPID, LIVER, BMP #### [facility] [address] [place] [address] Dr. Mariano Mistry PROF CHEM 8 (BAS METB)on Anion gap [Moles/Vol] 12.5 mmol/L Normal [facility] Comment on above: Performed By: #### T SH, LIPID, LIVER, BMP #### [facility] [address] [place] [address] Dr. Mariano Mistry Calcium [Mass/Vol] 9.0 mg/dL Normal 8.5-10.1 [facility] Comment on above: Performed By: #### T SH, LIPID, LIVER, BMP #### [facility] [address] [place] [address] Dr. Mariano Mistry Chloride [Moles/Vol] 105 mmol/L Normal 98-107 [facility] Comment on above: Performed By: #### T SH, LIPID, LIVER, BMP #### [facility] [address] [place] [address] Dr. Mariano Mistry CO2 [Moles/Vol] 26.8 mmol/L Normal 21.0-32.0 [facility] Comment on above: Performed By: #### T SH, LIPID, LIVER, BMP #### [facility] [address] [place] [address] Dr. Mariano Mistry Creatinine [Mass/Vol] 0.48 mg/dL Critically low 0.55-1.02 [facility] Comment on above: Performed By: #### T SH, LIPID, LIVER, BMP #### [facility] [address] [place] [address] Dr. Mariano Mistry EGFR-AF SINGAPOREAN >60 Normal >=60 [facility] Comment on above: Performed By: #### T SH, LIPID, LIVER, BMP #### [facility] [address] [address] [address] Mariano Mistry EGFR-NON AF [place]AN >60 Normal >=60 [facility] Comment on above: Performed By: #### T SH, LIPID, LIVER, BMP #### [facility] [address] [address] [address] Mariano Mistry Glucose [Mass/Vol] 106 mg/dL Normal 74-106 [facility] Comment on above: Performed By: #### T SH, LIPID, LIVER, BMP #### [facility] [address] [place] [address] Dr. Mariano Mistry Potassium [Moles/Vol] 4.3 mmol/L Normal 3.5-5.1 [facility] Comment on above: Performed By: #### T SH, LIPID, LIVER, BMP #### [facility] [address] [address] [address] Mariano Mistry Sodium [Moles/Vol] 140 mmol/L Normal 136-145 [facility] Comment on above: Performed By: #### T SH, LIPID, LIVER, BMP #### [facility] [address] [place] [address] Dr. Mariano Mistry Urea nitrogen [Mass/Vol] 24.0 mg/dL Critically high 7.0-18.0 [facility] Comment on above: Performed By: #### T SH, LIPID, LIVER, BMP #### [facility] [address] [place] [address] Dr. Mariano Mistry Urea nitrogen/Creatinine [Mass ratio] 50.0 mg/mg Normal [facility] Comment on above: Performed By: #### T SH, LIPID, LIVER, BMP #### [facility] [address] [place] [address] Dr. Mariano Mistry TSHon 03-03-2022 TSH 2.321 uIU/mL Normal 0.358-3.740 [facility] Comment on above: Performed By: #### T SH, LIPID, LIVER, BMP #### [facility] [address] [address] [address] Mariano Mistry TSH RANGE SEE BELOW Normal [facility] Comment on above: Result Comment: <0.3 4 UIU/ml HYPERTHYROID 0.34-5.60 UIU/ml EUTHYROID >5.60 UIU/ml HYPOTHYROID Performed By: #### T SH, LIPID, LIVER, BMP #### [facility] [address] [address] [address] Mariano Mistry VITAMIN D 25 OHon 03-03-2022 VIT D 25-OH 17.9 ng/mL Normal [facility] Comment on above: Performed By: #### V ITAD #### [facility] [address] [place] [address] Dr. Mariano Mistry VIT D RANGES SEE BELOW Normal [facility] Comment on above: Result Comment: <20 ng/mL Vit D deficient 20 - <30 ng/mL Vit D insufficient 30 - 100 ng/mL Vit D sufficient >100 ng/mL Potential Toxicity Performed By: #### V ITAD #### [facility] [address] [place] [address] Dr. Mariano Mistry Encounters Encounter Date Encounter Type Care Provider Facility Start: 05-02-2024 End: 05-02-2024 ambulatory LAVELL RIVER Not Available Start: 02-03-2024 End: 02-03-2024 ambulatory LAVELL RIVER Not Available Start: 01-23-2024 End: 01-23-2024 ambulatory LAVELL RIVER Not Available Start: 01-16-2024 End: 01-16-2024 ambulatory ABHISHEK RAMOS Not Available Start: 01-04-2024 End: 01-04-2024 ambulatory LAVELL RIVER Not Available Start: 09-14-2023 End: 09-14-2023 ambulatory LAVELL RIVER Not Available Start: 06-16-2023 End: 06-17-2023 ambulatory CELENA MARSH [facility] Start: 07-20-2022 End: 07-21-[address] LAVELL RIVER Facility: Start: 05-12-2022 End: 05-13-2022 ambulatory CELENA MARSH Facility:[facility] Start: 03-12-2022 End: 03-13-[address] DOCTOR FREIRE Facility:[facility] Start: 03-10-2022 Encounter for genera l adult medical examination without abnormal findings DR LAVELL RIVER [facility] Start: 03-03-2022 End: 03-04-[address] LAVELL RIVER Facility:[facility] Start: 03-03-2022 End: 03-04-2022 Encounter for general adult medical examination without abnormal findings DR LAVELL RIVER Facility:[facility] Start: 11-16-2016 End: 11-18-2016 Evaluation and management of inpatient Solomon Walters Facility:[facility] Payers Date Payer Category Payer Private Health Insurance [id number] 1965 Unknown [id number] 2.16.8 [id number] 1965 Unknown [id number] 2.16.84 [id number] 1965 Unknown [id number] 2.16.84 [id number] 1965 Unknown [id number] 2.16.84 [id number] 1965 Unknown [id number] 2.16.84 [id number] 1965 Unknown [id number] 2.16.84 [id number] 1965 Unknown [id number] 2.16.84 [id number] 1965 Unknown [id number] 1965 Unknown [id number] 1965 Unknown [id number] 1959 Private Health Insurance [id number] Progress note 06-16-2023 Note Date & Type [...] 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 She has good [...] both L a (more content not included)... [facility] Summary Purpose Family History No Family [...] section and content) DATE CREATED AUTHOR [facility]24/[facility] DATE CREATED AUTHOR AUTHOR'S ORGANIZ ATION 05/02/2022 [facility] DATE CREATED AUTHOR AUTHOR'S ORGANIZ ATION 05/14/2022 [facility] DATE CREATED AUTHOR AUTHOR'S ORGANIZ ATION 07/25/2022 [facility] DATE CREATED AUTHOR AUTHOR'S ORGANIZ ATION 03/02/2024 [facility] DATE CREATED AUTHOR AUTHOR'S ORGANIZ ATION 05/04/2024 [facility] FOR RECORDS PERTAINING TO PATIENTS WHO ARE [...] BE BASED ON THE PRIMARY CLINICAL RECORDS. [employer] provides no warranty or guarantee of the accuracy or completeness of information in this document.
[2024-05-22] MEDS: CHOLECALCIFEROL (VITAMIN D3) 25 MCG/1,000 UNITS TABLET 50 MCG PO (20:38)
[2024-05-22] MEDS: ASPIRIN 81 MG TAB.CHEW 324 MG PO (20:38)
[2024-05-22 20:43] LABS: Glucometer 133 mg/dL (74-106)
[2024-05-23] VITALS (7 sets, daily range): BP systolic 101–117; BP diastolic 71–75; PULSE 95–107; TEMP 36.9–37.2; O2SAT 95–96
--- NOTE | 2024-05-23 06:00 | ECG_ITS ---
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
[2024-05-23 06:14] LABS: Hematocrit 37.3 % (36.0-48.0); Mean Corpuscular HGB Conc 32.2 g/dL (29.9-35.2); Mean Corpuscular Hemoglobin 28.7 pg (26.7-34.0); Mean Corpuscular Volume 89.2 fL (81.0-99.0); Mean Platelet Volume 9.4 fL (9.5-13.5); Platelet Count 243 10^3/uL (150-450); Red Blood Count 4.18 10^6/uL (4.20-5.40); White Blood Count 7.4 10^3/uL (4.0-11.0)
[2024-05-23 06:42] LABS: Cholesterol 141 mg/dL (<=200); HDL Cholesterol 71 mg/dL (40-60); Thyroid Stimulating Hormone 0.799 uIU/mL (0.358-3.740); Triglycerides 94 mg/dL (<=150); VLDL CHOLESTEROL 18.8 mg/dL
[2024-05-23 06:44] LABS: Estimated Average Glucose 148 mg/dL; Glycohemoglobin A1C 6.8 % (4.5-6.2)
[2024-05-23 06:50] LABS: Anion Gap 12.1; BUN Creatinine Ratio 18.6; Calcium 9.3 mg/dL (8.5-10.1); Carbon Dioxide 28.7 mmol/L (21.0-32.0); Chloride 100 mmol/L (98-107); Estimated GFR (African America >60 (>=60); Estimated GFR (Non-African Ame >60 (>=60); Glucose 124 mg/dL (74-106); Potassium 3.8 mmol/L (3.5-5.1); Sodium 137 mmol/L (136-145); Troponin I High Sensitivity 5.9 pg/mL (4.0-51.3)
[2024-05-23] MEDS: FUROSEMIDE 40 MG TABLET PO (08:13)
[2024-05-23] MEDS: ASPIRIN 81 MG TAB.CHEW PO (08:13)
[2024-05-23] MEDS: SPIRONOLACTONE 25 MG TABLET 50 MG PO (08:13)
[2024-05-23] MEDS: CHOLECALCIFEROL (VITAMIN D3) 25 MCG/1,000 UNITS TABLET 50 MCG PO (08:13)
[2024-05-23] MEDS: LOSARTAN POTASSIUM 25 MG TABLET PO (08:13)
[2024-05-23] MEDS: MELOXICAM 7.5 MG TABLET 15 MG PO (08:13)
[2024-05-23 08:46] LABS: Troponin I High Sensitivity 6.2 pg/mL (4.0-51.3)
--- NOTE | 2024-05-23 09:36 | PM.HP ---
HPI H&P: HPI History of Present Illness Chief complaint: Chest Pain Narrative: HPI and Hospital Course: 58-year-old female with past medical history of high blood pressure, type 2 diabetes and hyperlipidemia presented to ER with midsternal, persistent chest pain that has been ongoing for past 3 days. She denies palpitations but reports that it is difficult for her to take deep inspiration because her pain worsens with breathing. She denies prior history of coronary artery disease or recent cardiac testing. She is a non-smoker, does not drink alcohol and denies drug use. Workup in ED revealed elevated D-dimer for which she had a CTA chest. She has no evidence of PE, pneumonia. Her cardiac enzymes are negative. She has no acute ischemic changes on EKG. She has chest wall tenderness and reports that she recently started working out with ellipticals. Her pain is pleuritic in nature and likely musculoskeletal. Patient is stable for discharge from cardiac point of view and can follow-up with her PCP to discuss outpatient stress test to evaluate underlying coronary artery disease. She was instructed to return to the hospital if she has worsening symptoms. Opioid HPI Opioid Management Most Recent Pain and Opioid Data: Last Pain Scale 5 05/23/24 08:49 Last Pain Assessment 05/23/24 08:49 Last ORT Total Score 0 05/22/24 19:57 Last ORT Risk Category Low Risk 05/22/24 19:57 Review of Systems ROS Status of ROS 10 or more systems reviewed and unremarkable except as noted in history and below [facility] Medical History (Updated 05/23/24 @ 09:45 by Shaikh Mathew MD) HLD (hyperlipidemia) ?E78.5 - Hyperlipidemia, unspecified (ICD-10) HTN (hypertension) ?I10 - Essential (primary) hypertension (ICD-10) Type 2 diabetes mellitus ?E11.9 - Type 2 diabetes mellitus without complications (ICD-10) Pain due to varicose veins of both lower extremities ?I83.813 - Varicose veins of bilateral lower extremities with pain (ICD-10) Varicose vein of leg ?I83.90 - Asymptomatic varicose veins of unspecified lower extremity (ICD-10) Elevated blood pressure reading ?R03.0 - Elevated blood-pressure reading, without diagnosis of hypertension (ICD-10) Constipation ?K59.00 - Constipation, unspecified (ICD-10) Osteoarthritis ?M19.90 - Unspecified osteoarthritis, unspecified site (ICD-10) Back pain ?M54.9 - Dorsalgia, unspecified (ICD-10) Extremity edema ?R60.0 - Localized edema (ICD-10) Prediabetes ?R73.03 - Prediabetes (ICD-10) Obesity ?E66.9 - Obesity, unspecified (ICD-10) Knee arthropathy ?M17.10 - Unilateral primary osteoarthritis, unspecified knee (ICD-10) Knee pain, bilateral ?M25.561 - Pain in right knee (ICD-10) ?M25.562 - Pain in left knee (ICD-10) Vitamin D deficiency ?E55.9 - Vitamin D deficiency, unspecified (ICD-10) Bronchitis ?J40 - Bronchitis, not specified as acute or chronic (ICD-10) Surgical History (Updated 01/24/24 @ 13:29 by Caroline Rivera NP) H/O abdominal surgery ?Z98.890 - Other specified postprocedural states (ICD-10) History of hysterectomy ?Z90.710 - Acquired absence of both cervix and uterus (ICD-10) History of section ?Z98.891 - History of uterine scar from previous surgery (ICD-10) Family History (Updated 01/24/24 @ 13:17 by Caroline Rivera NP) Other Family history of throat cancer Social History (Updated 05/22/24 @ 19:42 by Nelia Mcnamara) Within the past year, how often did you have a drink containing alcohol: monthly or less Smoking status: Never smoker Non-prescribed substance use: denies use 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 [employer] Highest level of school completed/degree received: some college, no degree Little interest or pleasure in doing things: not at all Feeling down, depressed, or hopeless: not at all Feel stressed/tense/nervous/anxious/difficulty sleeping: not at all Do you think of yourself as: straight/heterosexual Gender Identity: female Meds Home Medications and Allergies Home Medications ?Medication ?Instructions ?Recorded ?Confirmed ?Type albuterol sulfate 90 mcg/actuation 2 inh inhalation Q4H PRN shortness 03/13/23 05/22/24 Rx aerosol inhaler of breath or wheezing #8.5 grams cholecalciferol (vitamin D3) 50 2,000 unit PO BID 03/13/23 05/22/24 History mcg (2,000 unit) tablet (Vitamin D3) cyclobenzaprine 10 mg tablet 10 mg PO Q8H PRN muscle spasm 01/24/24 05/23/24 History furosemide 40 mg tablet 40 mg PO DAILY 01/24/24 05/22/24 History meloxicam 15 mg tablet 15 mg PO DAILY 01/24/24 05/22/24 History oxycodone-acetaminophen 5 mg-325 1 tab PO Q6H PRN pain 01/24/24 05/22/24 History mg tablet spironolactone 50 mg tablet 50 mg PO DAILY 01/24/24 05/22/24 History (Aldactone) atorvastatin 40 mg tablet 40 mg PO .QHS 05/22/24 05/23/24 History losartan 25 mg tablet 25 mg PO DAILY 05/22/24 05/22/24 History semaglutide 0.25 mg or 0.5 mg (2 0.25 mg subcut DAILY 05/22/24 05/22/24 History mg/3 mL) subcutaneous pen injector (Ozempic) Allergies Allergy/AdvReac Type Severity Reaction Status Date / Time nickel Allergy Verified 01/24/24 13:01 propoxyphene Allergy Verified 01/24/24 12:58 Exam Constitutional Vital Signs, click to edit/add: Last Vital Signs Temp 99 F 05/23/24 07:13 Pulse 104 H 05/23/24 07:53 Resp 20 05/23/24 07:13 BP 117/75 05/23/24 07:13 Pulse Ox 96 05/23/24 07:13 O2 Del Method Room Air 05/23/24 07:13 Documenting provider has reviewed patient's vital signs: yes Common normals: no apparent distress and oriented x3 General appearance: cooperative Nutritional appearance: obese HENMT Common normals: normocephalic and head/scalp atraumatic Head and scalp: normocephalic and atraumatic Eye Common normals: conjunctivae normal and no scleral icterus Conjunctiva: conjunctiva(e) normal Respiratory Common normals: normal respiratory effort and clear to auscultation bilaterally Effort & inspection: able to speak in complete sentences Auscultation: clear to auscultation bilaterally Cardio Common normals: regular rate, S1 normal heart sound and S2 normal heart sound Rate: regular rate Heart sounds: S1 normal and S2 normal GI Common normals: Normal to inspection, nondistended, normoactive bowel sounds present, soft to palpation, non-tender and no hepatosplenomegaly Palpation: soft and no hepatosplenomegaly Extremity Common normals: no clubbing, cyanosis or edema Neuro Common normals: oriented x3, moves all extremities and no focal motor deficits Psych Common normals: mental status grossly normal, denies hallucinations, denies homicidal ideation and denies suicidal ideation Results Labs Labs: Short CBC 05/22/24 05/23/24 Range/Units 16:43 05:52 WBC 8.3 7.4 (4.0-11.0) 10^3/uL Hgb 12.4 12.0 (12.0-16.0) g/dL Hct 36.9 37.3 (36.0-48.0) % Plt Count 291 243 (150-450) 10^3/uL BMP 05/22/24 05/23/24 16:43 05:52 Sodium 136 137 Potassium 4.0 3.8 Chloride 97 L 100 Carbon Dioxide 31.2 28.7 BUN 17.0 13.0 Creatinine 0.88 0.70 Glucose 138 H 124 H Calcium 9.3 9.3 Liver Function 05/22/24 Range/Units 16:43 Total Bilirubin 0.8 (0.2-1.0) mg/dL AST 22 (15-37) U/L ALT 45 (14-59) U/L Alkaline Phosphatase 130 H (46-116) U/L Albumin 3.2 L (3.4-5.0) g/dL Assessment and Plan Assessment and Plan (1) Chest pain: Assessment and Plan: Likely musculoskeletal. No acute changes on EKG. Cardiac enzymes are negative. Stable for discharge and follow-up with PCP. Qualifiers: Chest pain type: intercostal pain Qualified Code(s): R07.82 - Intercostal pain (2) Type 2 diabetes mellitus: Assessment and Plan: On Ozempic as outpatient. Continue with same Qualifiers: Diabetes mellitus [facility] insulin use: without [facility] use Diabetes mellitus complication status: without complication Qualified Code(s): E11.9 - Type 2 diabetes mellitus without complications (3) HTN (hypertension): Assessment and Plan: Continue with blood pressure medications. Blood pressure at goal Qualifiers: Hypertension type: primary hypertension Qualified Code(s): I10 - Essential (primary) hypertension (4) HLD (hyperlipidemia): Assessment and Plan: Continue with Lipitor Qualifiers: Hyperlipidemia type: mixed hyperlipidemia Qualified Code(s): E78.2 - Mixed hyperlipidemia
--- NOTE | 2024-05-23 09:56 | CM.NOTE ---
Rounds made with Dr. Carmona. Dr. Carmona discussed test results and types of chest pain. Dana verbalized understanding. Plan is for discharge today with followup with PCP within 1 week.
--- NOTE | 2024-05-24 14:18 | CM.DCFOLLOWU ---
Person spoke with:patient How are you feeling? well How is your pain? none Did you understand your discharge instructions? yes Do you have any questions about your discharge instructions? no Were you given any prescriptions at discharge? no Were you able to get your prescriptions filled? N/A Do you understand how to take your medications as ordered? yes Do you have any questions about your follow up appointment and do you plan to keep your follow up appointment? no questions, follow up reviewed Is there anything else that you would like to discuss? no Questions/Comments/Concerns/Other:none
== END 2024-05-23 12:15 | disposition home or self-care (01) ==
LOC: ER 18:56 → MS 19:49
PROVIDERS: Emergency Medicine; Registered Nurse; Admitting Provider Internal Medicine; Emergency Provider Emergency Medicine; PCP Family Medicine; Visit Provider Internal Medicine
DX: R07.82 Intercostal pain (principal); I10 Essential (primary) hypertension; E11.9 Type 2 diabetes mellitus without complications; E66.9 Obesity, unspecified; E78.2 Mixed hyperlipidemia; Z68.43 Body mass index [BMI] 50.0-59.9, adult; R06.02 Shortness of breath; Z79.899 Other long term (current) drug therapy
CPT/HCPCS: 36415; 71046; 71275; 80048; 80053; 80061; 82948; 83036; 83880; 84443; 84484; 85025; 85027; 85378; 93005; 99285; G0378; Q9967